=== PATIENT | male | born 1950 | race Caucasian/White ===

== ENCOUNTER 2018-10-21 22:08 | Emergency (ER) | payer MEDICARE ==
[2018-10-21 22:23] VITALS: BP 166/94; PULSE 69; RESP 20; TEMP 97.9
[2018-10-21] MEDS ORDERED: ORPHENADRINE 30 MG/ML 2 ML VIAL IM STA (22:59)
[2018-10-21] MEDS ORDERED: KETOROLAC 60 MG/2 ML VIAL IM STA (22:59)
--- NOTE | 2018-10-21 23:22 | ED ---
Back Pain HPI - General Chief Complaint: Back Pain/Injury Stated Complaint: Hip pain Time Seen by Provider: 10/21/18 22:42 Source: patient, family, RN notes reviewed, old records reviewed Limitations: no limitations - History of Present Illness Initial Comments: PT is a 67 year old male presents to ED with right lower back pain, radiation down the right leg. Patient states that he has had no falls or trauma. Denies saddle anesthesias. PAtient reports no fevers, chills, changes in urination. Denies abdominal pain. - Related Data Home Medications Medication Instructions Recorded Confirmed Ibuprofen [Motrin Ib] 400 mg PO TID PRN 10/21/18 10/21/18 Multivitamins, Thera [Multivitamin 1 tab PO DAILY 10/21/18 10/21/18 (formulary)] Previous Rx's Medication Instructions Recorded Cyclobenzaprine [Flexeril] 10 mg PO TID #20 tab 10/21/18 Dexamethasone 0.75 mg PO DAILY #12 tab 10/21/18 Ibuprofen 600 mg PO TID #20 tablet 10/21/18 Allergies Allergy/AdvReac Type Severity Reaction Status Date / Time No Known Allergies Allergy Verified 10/21/18 22:54 Review of Systems ROS Statement: Those systems with pertinent positive or pertinent negative responses have been documented in the HPI. ROS Other: All systems not noted in ROS Statement are negative. Past Medical History Past Medical History: Asthma History of Any Multi-Drug Resistant Organisms: None Reported Past Surgical History: No Surgical Hx Reported Past Psychological History: No Psychological Hx Reported Smoking Status: Current every day smoker Past Alcohol Use History: Occasional Past Drug Use History: None Reported General Exam - General Exam Comments Initial Comments: This is a 67 year old male, no acute distress. Limitations: no limitations General appearance: alert, in no apparent distress Head exam: Present: atraumatic, normocephalic, normal inspection Eye exam: Present: normal appearance, PERRL, EOMI. Absent: scleral icterus, conjunctival injection, periorbital swelling ENT exam: Present: normal exam, mucous membranes moist Neck exam: Present: normal inspection. Absent: tenderness, meningismus, lymphadenopathy Respiratory exam: Present: normal lung sounds bilaterally. Absent: respiratory distress, wheezes, rales, rhonchi, stridor Cardiovascular Exam: Present: regular rate, normal rhythm, normal heart sounds. Absent: systolic murmur, diastolic murmur, rubs, gallop, clicks GI/Abdominal exam: Present: soft, normal bowel sounds. Absent: distended, tenderness, guarding, rebound, rigid Extremities exam: Present: normal inspection, full ROM, normal capillary refill. Absent: tenderness, pedal edema, joint swelling, calf tenderness Back exam: Present: normal inspection, tenderness (lubar spine,adn right sciatic notch tenderness. ) Neurological exam: Present: alert, oriented X3, CN II-XII intact Psychiatric exam: Present: normal affect, normal mood Skin exam: Present: warm, dry, intact, normal color. Absent: rash Course Vital Signs 10/21/18 22:18 Temperature 97.9 F Pulse Rate 69 Respiratory 20 Rate Blood Pressure 166/94 O2 Sat by Pulse 99 Oximetry Medical Decision Making - Medical Decision Making PAtient is a 67 year old male with right lower back pain, radiating down sciatic nerve. No falls or trauma. Patient has been taking ibuprofen with little relief. At this time he has positive straight leg test and tenderness over sciatic notch. Patient given IM Toradol and norflex. Patient continues to complain of pain. 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 No fracture identified. Discusesd patient can folllwo up with ortho and PCP. Discussed return parameters. Patient agrees to treatment plan and will comply. DC with antiinflammatory medication and muscle releacer. - Radiology Data Radiology results: report reviewed Spondylitic changes noted over the lumbar vertebral spine. There is no fracture noted. Disposition Clinical Impression: Sciatica Disposition: HOME SELF-CARE Condition: Good Instructions: Sciatica (ED), Acute Low Back Pain (ED) Additional Instructions: Patient advised to follow-up with primary care physician. Return to emergency department if any alarming signs or symptoms occur. Prescriptions: Cyclobenzaprine [Flexeril] 10 mg PO TID #20 tab Dexamethasone 0.75 mg PO DAILY #12 tab Ibuprofen 600 mg PO TID #20 tablet Is patient prescribed a controlled substance at d/c from ED?: No Referrals: Camacho Downing MD [Primary Care Provider] - 1-2 days Time of Disposition: 23:55
--- NOTE | 2018-10-21 23:22 | XR ---
EXAMINATION TYPE: XR lumbar spine 2 or 3V DATE OF EXAM: 10/21/2018 COMPARISON: NONE HISTORY: Low back pain TECHNIQUE: 3 views FINDINGS: The vertebra have normal alignment. There is some spurring of the endplates. Abdominal aort a is atheromatous. Sacroiliac joints appear intact. There is no compression fracture. There is sclero sis at the L4-5 disc. Posterior elements appear intact. There is mild lateral subluxation deformity a t the L1 2 level. IMPRESSION: Spondylotic changes. No fracture seen.
[2018-10-22] MEDS ORDERED: ACET/COD 300 MG/30 MG STARTER PACK 6 TAB BTL PO STA (00:02)
[2018-10-22] MEDS ORDERED: CYCLOBENZAPRINE 10MG STARTER 3 TAB BTL PO STA (00:02)
== END 2018-10-22 00:45 | disposition home or self-care (01) ==
LOC: EC 22:08
DX: M54.41 Lumbago with sciatica, right side (principal); M47.896 Other spondylosis, lumbar region; F17.200 Nicotine dependence, unspecified, uncomplicated
CPT/HCPCS: 72100; 99284; 96372 ×2; J2360; J1885

== ENCOUNTER 2022-10-31 03:08 | Inpatient (IN) | payer MEDICARE, OTHER ==
[2022-10-31] MEDS ORDERED: Alteplase PER PHARMACY Stroke 1 EACH MISC MISCELLANE PRN (03:12)
[2022-10-31] MEDS ORDERED: SODIUM CHLORIDE 0.9% 1,000 ML IV STA (03:12)
--- NOTE | 2022-10-31 03:15 | ED ---
Neuro HPI - General Stated Complaint: Possible Stroke Time Seen by Provider: 10/31/22 03:12 Source: RN notes reviewed, old records reviewed Limitations: no limitations - History of Present Illness Is the patient presenting with stroke symptoms?: Yes -: hour(s) (7) Initial Comments: This is a 71-year-old male to the emergency department for evaluation. Patient presents today for evaluation of strokelike symptoms. Patient states she is going to the bathroom tonight when he began to notice significant weakness on his right side and facial drooping. Patient had difficulty speaking did call EMS for evaluation brought to ER under suspicion of stroke. No prior history of CVA. Patient initially went to bed around 7:30 8:00 woke up around 2 AM with these symptoms Location: speech, left face, dysarthria, right arm, right leg Place: home Severity: severe Quality: weak, constant Improves With: none Worsens With: none On Anticoagulants: No Context: sudden onset (occured while sleeping was feeling normal at 1a) Associated Symptoms: denies other symptoms Treatments Prior to Arrival: none - Related Data Home Medications: Home Medications Medication Instructions Recorded Confirmed Ibuprofen [Motrin Ib] 400 mg PO TID PRN 10/21/18 10/21/18 Multivitamins, Thera [Multivitamin 1 tab PO DAILY 10/21/18 10/21/18 (formulary)] Previous Rx's Medication Instructions Recorded Cyclobenzaprine [Flexeril] 10 mg PO TID #20 tab 10/21/18 Ibuprofen 600 mg PO TID #20 tablet 10/21/18 dexAMETHasone 0.75 mg PO DAILY #12 tab 10/21/18 Allergies/Adverse Reactions: Allergies Allergy/AdvReac Type Severity Reaction Status Date / Time No Known Allergies Allergy Verified 10/21/18 22:54 Review of Systems ROS Statement: Those systems with pertinent positive or pertinent negative responses have been documented in the HPI. ROS Other: All systems not noted in ROS Statement are negative. General Exam - General Exam Comments Initial Comments: NIH of 9 Left-sided facial droop, dysarthria, right-sided hemiparesis General appearance: alert, in no apparent distress, anxious Head exam: Present: atraumatic, normocephalic, normal inspection Eye exam: Present: normal appearance, PERRL, EOMI. Absent: scleral icterus, conjunctival injection, periorbital swelling ENT exam: Present: normal exam, mucous membranes moist Neck exam: Present: normal inspection. Absent: tenderness, meningismus, lymphadenopathy Respiratory exam: Present: normal lung sounds bilaterally. Absent: respiratory distress, wheezes, rales, rhonchi, stridor Cardiovascular Exam: Present: regular rate, normal rhythm, normal heart sounds. Absent: systolic murmur, diastolic murmur, rubs, gallop, clicks GI/Abdominal exam: Present: soft, normal bowel sounds. Absent: distended, tend erness, guarding, rebound, rigid Extremities exam: Present: normal inspection, full ROM, normal capillary refill. Absent: tenderness, pedal edema, joint swelling, calf tenderness Back exam: Present: normal inspection Neurological exam: Present: alert, oriented X3, CN II-XII intact Psychiatric exam: Present: normal affect, normal mood Skin exam: Present: warm, dry, intact, normal color. Absent: rash Stroke MDM - Lab Data Result diagrams: 10/31/22 03:13 10/31/22 03:13 Lab Results 10/31/22 10/31/22 10/31/22 Range/Units 03:13 03:13 03:13 WBC 8.8 (3.8-10.6) k/uL RBC 4.90 (4.30-5.90) m/uL Hgb 15.4 (13.0-17.5) gm/dL Hct 45.4 (39.0-53.0) % MCV 92.5 (80.0-100.0) fL MCH 31.4 (25.0-35.0) pg MCHC 33.9 (31.0-37.0) g/dL RDW 13.4 (11.5-15.5) % Plt Count 213 (150-450) k/uL MPV 7.8 Neutrophils % 69 % Lymphocytes % 20 % Monocytes % 5 % Eosinophils % 4 % Basophils % 1 % Neutrophils # 6.0 (1.3-7.7) k/uL Lymphocytes # 1.7 (1.0-4.8) k/uL Monocytes # 0.5 (0-1.0) k/uL Eosinophils # 0.4 (0-0.7) k/uL Basophils # 0.1 (0-0.2) k/uL PT 10.8 (9.0-12.0) sec INR 1.0 (<1.2) APTT 25.2 (22.0-30.0) sec Sodium 142 (137-145) mmol/L Potassium 4.3 (3.5-5.1) mmol/L Chloride 110 H (98-107) mmol/L Carbon Dioxide 23 (22-30) mmol/L Anion Gap 9 mmol/L BUN 19 (9-20) mg/dL Creatinine 0.87 (0.66-1.25) mg/dL Est GFR (CKD-EPI)AfAm >90 (>60 ml/min/1.73 sqM) Est GFR (CKD-EPI)NonAf 88 (>60 ml/min/1.73 sqM) Glucose 100 H (74-99) mg/dL Calcium 8.5 (8.4-10.2) mg/dL Total Bilirubin 0.2 (0.2-1.3) mg/dL AST 19 (17-59) U/L ALT 17 (4-49) U/L Alkaline Phosphatase 64 (38-126) U/L Troponin I (0.000-0.034) ng/mL Total Protein 7.0 (6.3-8.2) g/dL Albumin 4.4 (3.5-5.0) g/dL 10/31/22 Range/Units 03:13 WBC (3.8-10.6) k/uL RBC (4.30-5.90) m/uL Hgb (13.0-17.5) gm/dL Hct (39.0-53.0) % MCV (80.0-100.0) fL MCH (25.0-35.0) pg MCHC (31.0-37.0) g/dL RDW (11.5-15.5) % Plt Count (150-450) k/uL MPV Neutrophils % % Lymphocytes % % Monocytes % % Eosinophils % % Basophils % % Neutrophils # (1.3-7.7) k/uL Lymphocytes # (1.0-4.8) k/uL Monocytes # (0-1.0) k/uL Eosinophils # (0-0.7) k/uL Basophils # (0-0.2) k/uL PT (9.0-12.0) sec INR (<1.2) APTT (22.0-30.0) sec Sodium (137-145) mmol/L Potassium (3.5-5.1) mmol/L Chloride (98-107) mmol/L Carbon Dioxide (22-30) mmol/L Anion Gap mmol/L BUN (9-20) mg/dL Creatinine (0.66-1.25) mg/dL Est GFR (CKD-EPI)AfAm (>60 ml/min/1.73 sqM) Est GFR (CKD-EPI)NonAf (>60 ml/min/1.73 sqM) Glucose (74-99) mg/dL Calcium (8.4-10.2) mg/dL Total Bilirubin (0.2-1.3) mg/dL AST (17-59) U/L ALT (4-49) U/L Alkaline Phosphatase (38-126) U/L Troponin I <0.012 (0.000-0.034) ng/mL Total Protein (6.3-8.2) g/dL Albumin (3.5-5.0) g/dL - NIH Stroke Scale 1a. Level of Consciousness: (0) alert 1b. LOC Questions: (0) answers correctly 1c. LOC Commands: (1) performs 1 task correctly 2. Best Gaze: (0) normal 3. Visual: (0) no visual loss 4. Facial Palsy: (2) partial paralysis 5a. Motor Arm Left: (0) no drift 5b. Motor Arm Right: (3) no gravity effort 6a. Motor Leg Left: (0) no drift 6b. Motor Leg Right: (3) no gravity effort 7. Limb Ataxia: (1) present 1 limb 8. Sensory: (1) mild/moderate sensory loss 9. Best Language: (1) mild/moderate aphasia 10. Dysarthria: (1) mild/moderate dysarthria 11. Extinction/Inattention: (0) no abnormality - Thrombolytic Inclusion/Exclusion Thrombolytic Exclusion Criteria: Symptom Onset > 4.5 Hours (Wake up CVA) - Medical Decision Making 71 male DF for evaluation of CVA no TPA. Onset no due to wake up stroke. Patient is elevated blood pressure low that improved, positive CVA with bilateral carotid stenosis. Patient symptoms are unchanged - Radiology Data Radiology results: report reviewed (CT brain and CTA had neck positive bilateral stenosis), image reviewed - EKG Data -: EKG Interpreted by Me (EKG is sinus rhythm 83 IN 12/01/2010 QRS 114 QTc 428) Past Medical History Past Medical History: Asthma History of Any Multi-Drug Resistant Organisms: None Reported Past Surgical History: No Surgical Hx Reported Past Psychological History: No Psychological Hx Reported Past Alcohol Use History: Occasional Past Drug Use History: None Reported Course Vital Signs 10/31/22 10/31/22 10/31/22 03:13 03:35 03:39 Pulse Rate 64 84 82 Respiratory 18 15 15 Rate Blood Pressure 173/121 165/101 158/90 O2 Sat by Pulse 96 100 Oximetry 10/31/22 10/31/22 03:47 03:57 Pulse Rate 87 89 Respiratory 15 15 Rate Blood Pressure 165/96 169/89 O2 Sat by Pulse 97 97 Oximetry - Reevaluation(s) Reevaluation #1: 10/31/22 04:13 Medical records reviewed Reevaluation #2: 10/31/22 04:13 Patient symptoms unchanged Reevaluation #3: 10/31/22 04:13 Patient informed of results and questions answered - Consultations Consultation #1: Spoke with admitting physicians who agreed to admit this patient Critical Care Time Critical Care Time: Yes Total Critical Care Time: 35 Disposition Clinical Impression: Cerebrovascular accident (CVA) Disposition: ADMITTED IP TO THIS HOSP Condition: Serious Is patient prescribed a controlled substance at d/c from ED?: No Referrals: Camacho Downing MD [Primary Care Provider] - 1-2 days Time of Disposition: 04:05
[2022-10-31] MEDS ORDERED: hydrALAZINE HCL 20 MG/ML 1 ML VIAL IVP STA (03:18)
[2022-10-31] MEDS ORDERED: LABETALOL 5 MG/ML VIAL MDV IVP STA (03:18)
[2022-10-31] MEDS ORDERED: ALTEPLASE 56 MG in EMPTY BAG 1 BAG IV STA (03:20)
[2022-10-31] MEDS ORDERED: ALTEPLASE BOLUS FOR STROKE 6 MG in EMPTY SYRINGE 1 SYR IV STA (03:20)
[2022-10-31 03:25] LABS: Basophils # (A) 0.1 k/uL (0-0.2); Basophils % (A) 1 %; Eosinophils # (A) 0.4 k/uL (0-0.7); Eosinophils % (A) 4 %; HCT 45.4 % (39.0-53.0); HGB 15.4 gm/dL (13.0-17.5); Lymphocytes # (A) 1.7 k/uL (1.0-4.8); Lymphocytes % (A) 20 %; MCH 31.4 pg (25.0-35.0); MCHC 33.9 g/dL (31.0-37.0); MCV 92.5 fL (80.0-100.0); Mean Platelet Volume 7.8; Monocytes # (A) 0.5 k/uL (0-1.0); Monocytes % (A) 5 %; Neutrophils % (A) 69 %; Platelet Count 213 k/uL (150-450); RDW 13.4 % (11.5-15.5); WBC 8.8 k/uL (3.8-10.6)
[2022-10-31 03:35] LABS: Partial Thromboplastin Time 25.2 sec (22.0-30.0); Prothrombin Time 10.8 sec (9.0-12.0)
--- NOTE | 2022-10-31 03:36 | CT ---
EXAMINATION TYPE: CT brain wo con for TPA DATE OF EXAM: 10/31/2022 COMPARISON: None HISTORY: code stroke CT DLP: 1198 mGycm Automated exposure control for dose reduction was used. Images obtained of the brain with no contrast. Ventricles of normal size. There is no mass effect or midline shift. No sign of intracranial hemorrha ge. Calvarium is intact. There is normal aeration of the mastoid sinuses. There is some mucosal thick ening in the maxillary sinuses. IMPRESSION: Negative CT scan of the brain. Mild maxillary sinusitis.
--- NOTE | 2022-10-31 03:43 | CT ---
EXAMINATION TYPE: CT angio head neck DATE OF EXAM: 10/31/2022 COMPARISON: None HISTORY: code stroke CT DLP: mGycm Automated exposure control for dose reduction was used. CONTRAST: Performed with IV Contrast, patient injected with 100 mL of Isovue 370. Images obtained from the aortic arch to the vertex of the brain with the IV contrast. There are Three -D postprocessed images. There is normal branching pattern of the great vessels on the aortic arch. There is arterial flow in the subclavian arteries bilaterally there is arterial flow in the common internal and external caroti d arteries bilaterally. There is some plaque formation and tortuosity involving the proximal left int ernal carotid artery there is significant plaque formation on the posterior wall of the proximal righ t internal carotid artery and 60% diameter stenosis. There is similarly approximately 50% stenosis in the proximal left internal carotid artery. There is arterial flow in both vertebral arteries. There is arterial flow in the vertebral basilar artery system. Basilar artery fills mostly from the right s leoncio. There is no evidence of carotid or vertebral artery aneurysm or dissection. There is arterial flow in the anterior middle and posterior cerebral arteries bilaterally. No evidenc e of intracranial hemodynamic arterial stenosis. No mass effect. No evidence of aneurysm or neovascul arity. There is normal enhancement of the venous sinuses. IMPRESSION: Plaque formation in the proximal internal carotid arteries bilaterally in approximate 60% stenosis on the right side and 50% stenosis on the left side.
[2022-10-31 03:50] LABS: ALT 17 U/L (4-49); AST 19 U/L (17-59); African American GFR (CKD) >90 (>60 ml/min/1.73 sqM); Albumin 4.4 g/dL (3.5-5.0); Alkaline Phosphatase 64 U/L (38-126); Anion Gap 9 mmol/L; Blood Urea Nitrogen 19 mg/dL (9-20); Calcium 8.5 mg/dL (8.4-10.2); Carbon Dioxide 23 mmol/L (22-30); Chloride 110 mmol/L (98-107); Glucose 100 mg/dL (74-99); Non-African American GFR(CKD) 88 (>60 ml/min/1.73 sqM); Potassium 4.3 mmol/L (3.5-5.1); Sodium 142 mmol/L (137-145); Total Bilirubin 0.2 mg/dL (0.2-1.3)
[2022-10-31] MEDS ORDERED: TICAGRELOR 90 MG TAB PO STA (04:02)
[2022-10-31] MEDS ORDERED: MORPHINE SULFATE 4 MG/ML SYRINGE IV PRN (04:02)
[2022-10-31] MEDS ORDERED: NALOXONE 0.4 MG/ML 1 ML VIAL IV PRN (04:02)
[2022-10-31] MEDS ORDERED: ONDANSETRON 4 MG/2 ML VIAL IVP PRN (04:02)
[2022-10-31] MEDS ORDERED: SODIUM CHLORIDE 0.9% 50 ML MINI-BAG IV ONE (04:22)
[2022-10-31] MEDS: SODIUM CHLORIDE 0.9% 1,000 ML IV SCH ×3 (04:54→18:27)
--- NOTE | 2022-10-31 08:18 | P.HPIM ---
History of Present Illness This is a pleasant 71 years old male with past medical history of asthma presents with right-sided weakness Patient presents because of right-sided weakness, he was trying to reach out to his phone earlier morning 3 to 4:00 AM when he noticed that he could not move his right arm and leg also he felt numbness in his right side of the face so he came to emergency room, currently still right-sided weak but he can move his leg slightly better, he can bend his knee and lifted off the bed easily. However her right arm still has limitation in movement. Also he has mild deviation towards the left side. He has some headache but he denies any dizziness or blurred vision, double vision or slurred speech. If his little short of breath and coughing. No chest pain. No urinary complaints, no dysuria urgency, no vomiting or diarrhea or abdominal pain. No fever. He smokes about 1 pack per day but he desires to quit today and he agrees to the nicotine patch. No alcohol or illicit drugs. Vitals are stable and patient is afebrile Has unremarkable CBC, INR, BMP, liver enzymes, troponin. EKG showing normal sinus rhythm at [address]-T changes CT of the brain: No acute process CTA of the head and neck: 60% stenosis of the right ICA and 50% stenosis of the left ICA In the emergency room patient was started on brillinta Review of Systems Review of systems CONSTITUTIONAL: No fever, no malaise, no fatigue. HEENT: No recent visual problems or hearing problems. Denied any sore throat. CARDIOVASCULAR: No orthopnea, PND, no palpitations, no syncope. PULMONARY: No shortness of breath, no cough, no hemoptysis. GASTROINTESTINAL: No diarrhea, no nausea, no vomiting, no abdominal pain. Normoactive bowel sounds. NEUROLOGICAL: No headaches, no weakness, no numbness. HEMATOLOGICAL: Denies any bleeding or petechiae. GENITOURINARY: Denies any burning micturition, frequency, or urgency. MUSCULOSKELETAL/RHEUMATOLOGICAL: Denies any joint pain, swelling, or any muscle pain. ENDOCRINE: Denies any polyuria or polydipsia. Past Medical History Past Medical History: Asthma History of Any Multi-Drug Resistant Organisms: None Reported Past Surgical History: No Surgical Hx Reported Past Psychological History: No Psychological Hx Reported Past Alcohol Use History: Occasional Past Drug Use History: None Reported Medications and Allergies Home Medications Medication Instructions Recorded Confirmed Type No Known Home Medications 10/31/22 10/31/22 History Allergies Allergy/AdvReac Type Severity Reaction Status Date / Time No Known Allergies Allergy Verified 10/31/22 07:26 Physical Exam Vitals: Vital Signs Temp Pulse Resp BP Pulse Ox 10/31/22 05:51 82 15 167/96 99 10/31/22 05:22 97.4 F L 10/31/22 05:06 80 15 153/87 97 10/31/22 04:55 80 15 147/95 97 10/31/22 03:57 89 15 169/89 97 10/31/22 03:47 87 15 165/96 97 10/31/22 03:39 82 15 158/90 100 10/31/22 03:35 84 15 165/101 10/31/22 03:13 64 18 173/121 96 Intake and Output 10/30/22 10/30/22 10/31/22 14:59 22:59 06:59 Other: Weight 68.855 kg GENERAL: The patient is alert and oriented x3, not in any acute distress. Well developed, well nourished. HEENT: Pupils are round and equally reacting to light. EOMI. No scleral icterus. No conjunctival pallor. Normocephalic, atraumatic. No pharyngeal erythema. No thyromegaly. CARDIOVASCULAR: S1 and S2 present. No murmurs, rubs, or gallops. -PULMONARY: Chest is clear to auscultation,crackles. Mild scattered wheezing ABDOMEN: Soft, nontender, nondistended, normoactive bowel sounds. No palpable organomegaly. MUSCULOSKELETAL: No joint swelling or deformity. EXTREMITIES: No cyanosis, clubbing, or pedal edema. -NEUROLOGICAL: Deviation of the most dorsal left side, right arm weakness and also agrees right leg weakness. Left side is 5/5 strength. Loss of sensation in the right side but not on the left side. SKIN: No rashes. no petechiae. Results CBC & Chem 7: 10/31/22 03:13 10/31/22 03:13 Labs: Abnormal Lab Results - Last 24 Hours (Table) 10/31/22 Range/Units 03:13 Chloride 110 H (98-107) mmol/L Glucose 100 H (74-99) mg/dL Assessment and Plan Assessment: Acute stroke with right hemiparesis Bilateral carotid artery stenosis, right side 60%, left side 50% asthma, with mild exacerbation Nicotine dependence Plan: Continue with brillinta Neuro check Neurology consult Speech therapy evaluation Continue with bronchodilator and we budesonide inhaler Nicotine patch We'll check chest x-ray in view of his breathing problem Labs and medication were reviewed.. Continue same treatment. Continue with symptomatic treatment. Resume home medication. Monitor labs and vitals. DVT and GI prophylaxis. Further recommendations as per clinical course of the patient DVT prophylaxis: Subcutaneous heparin GI Prophylaxis: Pepcid PT/OT: Pending Prognosis is guarded
[2022-10-31] MEDS: IPRATROPIUM-ALBUTEROL 3 ML NEB INHALATION STA ×2 (08:20→08:22)
[2022-10-31] MEDS: FAMOTIDINE 20 MG/2 ML VIAL IV SCH ×2 (08:43→20:05)
[2022-10-31] MEDS: NICOTINE 21MG/24HR PATCH TRANSDERM SCH (08:44)
[2022-10-31] MEDS: HEPARIN SODIUM,PORCINE/PF 5,000 UNIT/0.5 ML SYRINGE SQ SCH ×2 (08:44→20:06)
--- NOTE | 2022-10-31 09:16 | XR ---
EXAMINATION TYPE: XR chest 2V DATE OF EXAM: 10/31/2022 COMPARISON: None INDICATION: Short of breath, asthma TECHNIQUE: Frontal and lateral views of the chest are obtained. FINDINGS: The heart size is normal. The pulmonary vasculature is normal. The lungs are clear. Upper inflation flattening of the diaphragms is present compatible with COPD. M inimal posterior pleural fluid is not excluded. IMPRESSION: 1. No acute pulmonary process. Minimal posterior pleural fluid is not excluded. 2. COPD
--- NOTE | 2022-10-31 09:48 | US ---
EXAMINATION TYPE: US carotid duplex BILAT DATE OF EXAM: 10/31/2022 COMPARISON: Same day CTA CLINICAL HISTORY: right sided weakness, CVA/TIA. Pt states transient right side weakness TECHNIQUE: Carotid duplex ultrasound examination. Indirect Doppler criteria was utilized. FINDINGS: EXAM MEASUREMENTS: RIGHT: Peak Systolic Velocity (PSV) cm/sec ----- Right CCA: 64.8 ----- Right ICA: 468 ----- Right ECA: 184 ICA/CCA ratio: 7.2 RIGHT: End Diastole cm/sec ----- Right CCA: 16.1 ----- Right ICA: 141 ----- Right ECA: 27.3 LEFT: Peak Systolic Velocity (PSV) cm/sec ----- Left CCA: 71.5 ----- Left ICA: 251 ----- Left ECA: 124 ICA/CCA ratio: 3.5 LEFT: End Diastole cm/sec ----- Left CCA: 13.6 ----- Left ICA: 73.8 ----- Left ECA: 24.1 VERTEBRALS (direction of flow): Right Vertebral: Antegrade Left Vertebral: Antegrade Rhythm: Normal ORIGINATION SPECIALIST NOTES: Heterogeneous and soft plaque bilaterally with significant stenosis and abnormal r atios bilaterally, more on right side IMPRESSION: 1. Atheromatous plaquing of bilateral carotid bifurcations with flow-limiting stenosis. This is signi ficant on the right, greater than 70%. This is also significant on the left, greater than 70%, but li faby less than on the right. Criteria for Assigning % of Stenosis / Diameter reduction (Estimation based on the indirect measurements of the internal carotid artery velocities (ICA PSV). 1. Normal (no stenosis)=ICA PSV < 125 cm/s: ratio < 2.0: ICA EDV<40 cm/s. 2. Less than 50% stenosis=ICA PSV < 125 cm/s: ratio < 2.0: ICA EDV<40 cm/s. 3. 50 to 69% stenosis=ICA PSV of 125 to 230 cm/s: ration 2.0 ? 4.0: ICA EDV 40-100 cm/s. 4. Greater than 70% stenosis to near occlusion= ICA PSV > 230 cm/s: ratio > 4.0: ICA EDV > 100 cm/s. 5. Near occlusion= ICA PSV velocities may be low or undetectable: variable ratio and ICA EDV. 6. Total occlusion=unable to detect flow.
--- NOTE | 2022-10-31 12:28 | P.GSCN ---
History of Present Illness Consult date: 10/31/22 Reason for Consult: Carotid stenosis Requesting physician: Cm Quispe History of present illness: KASSIE is a pleasant 71-year-old male who presented to the emergency department approximately 3 AM with complaints of right-sided weakness facial droop and difficulty with his speech. Patient states he woke up around 1-2:00 in the morning and had difficulty with using his phone and pushing numbers with his right hand. He then noticed that he was having some right-sided weakness and something was not right. He got up and he was able to walk he saw his son and he states that he then started having some difficulty with speaking and slurred speech. He denies any visual changes or left-sided weakness. Symptoms lasted until he came to the emergency department. He denies any previous history of CVA/TIA. He has a past medical history of asthma, and he is a current pack per day smoker. Patient is right-hand dominant. Symptoms have resolved. Denies any previous known history of carotid artery disease, no diabetes, and no reported coronary artery disease. Patient had a CT angiogram of the head and n angela that did show bilateral carotid artery stenosis. Vascular surgery was consulted for the above. Currently patient denies any chest pain, shortness of breath, abdominal pain, nausea vomiting, fevers or chills. He denies any focal deficits. States he is able to move his right upper extremity and lower extremity, speech seems fluent, and no visual disturbances. Patient was started on Brilinta in the emergency room. Patient was not given TPA has a stated his last known normal was at 7 or 8 PM which was greater than [address] impression states negative computed tomography scan of brain. Mild maxillary sinusitis CT angiogram head and neck impression states plaque formation in the proximal internal carotid arteries bilaterally and approximate 60% stenosis on the right and 50% stenosis on the left side. Review of Systems A 14 point review systems was completed all pertinent positives and negatives as stated in the HPI. Past Medical History Past Medical History: Asthma History of Any Multi-Drug Resistant Organisms: None Reported Past Surgical History: No Surgical Hx Reported Past Psychological History: No Psychological Hx Reported Past Alcohol Use History: Occasional Past Drug Use History: None Reported - Past Family History Mother Family Medical History: Myocardial Infarction ([place]) Medications and Allergies Home Medications Medication Instructions Recorded Confirmed Type No Known Home Medications 10/31/22 10/31/22 History Allergies Allergy/AdvReac Type Severity Reaction Status Date / Time No Known Allergies Allergy Verified 10/31/22 07:26 Surgical - Exam Vital Signs Pulse Resp BP Pulse Ox 64 18 173/121 96 10/31/22 03:13 10/31/22 03:13 10/31/22 03:13 10/31/22 03:13 General appearance: The patient is alert, oriented, appears in no acute distress. HET: Head is normocephalic and atraumatic. Pupils are equal and reactive. Neck: Supple without lymphadenopathy. Trachea midline. No audible carotid bruit. Heart: Regular. Lungs: Equal expansion, normal respiratory effort. Abdomen: Soft, nontender, nondistended. Extremities: Normal skin color and turgor. No cyanosis, rash, ulceration, clubbing, or edema. Radial and pedal pulses are 2/4 bilaterally. Neurological: Patient is alert and oriented 3. Patient has facial symmetry, tongue protrudes midline. Speech is clear and fluent, patient is able to follow directions and answer questions appropriately. Patient with mild right upper and lower extremity weakness 4/5. Results - Labs 10/31/22 03:13 10/31/22 03:13 Abnormal Lab Results - Last 24 Hours (Table) 10/31/22 Range/Units 03:13 Chloride 110 H (98-107) mmol/L Glucose 100 H (74-99) mg/dL Diabetes panel 10/31/22 Range/Units 03:13 Sodium 142 (137-145) mmol/L Potassium 4.3 (3.5-5.1) mmol/L Chloride 110 H (98-107) mmol/L Carbon Dioxide 23 (22-30) mmol/L BUN 19 (9-20) mg/dL Creatinine 0.87 (0.66-1.25) mg/dL Glucose 100 H (74-99) mg/dL Calcium 8.5 (8.4-10.2) mg/dL AST 19 (17-59) U/L ALT 17 (4-49) U/L Alkaline Phosphatase 64 (38-126) U/L Total Protein 7.0 (6.3-8.2) g/dL Albumin 4.4 (3.5-5.0) g/dL Calcium panel 10/31/22 Range/Units 03:13 Calcium 8.5 (8.4-10.2) mg/dL Albumin 4.4 (3.5-5.0) g/dL Pituitary panel 10/31/22 Range/Units 03:13 Sodium 142 (137-145) mmol/L Potassium 4.3 (3.5-5.1) mmol/L Chloride 110 H (98-107) mmol/L Carbon Dioxide 23 (22-30) mmol/L BUN 19 (9-20) mg/dL Creatinine 0.87 (0.66-1.25) mg/dL Glucose 100 H (74-99) mg/dL Calcium 8.5 (8.4-10.2) mg/dL Adrenal panel 10/31/22 Range/Units 03:13 Sodium 142 (137-145) mmol/L Potassium 4.3 (3.5-5.1) mmol/L Chloride 110 H (98-107) mmol/L Carbon Dioxide 23 (22-30) mmol/L BUN 19 (9-20) mg/dL Creatinine 0.87 (0.66-1.25) mg/dL Glucose 100 H (74-99) mg/dL Calcium 8.5 (8.4-10.2) mg/dL Total Bilirubin 0.2 (0.2-1.3) mg/dL AST 19 (17-59) U/L ALT 17 (4-49) U/L Alkaline Phosphatase 64 (38-126) U/L Total Protein 7.0 (6.3-8.2) g/dL Albumin 4.4 (3.5-5.0) g/dL Assessment and Plan Assessment: 1. Bilateral internal carotid artery stenosis 60% right ICA stenosis, 50% left ICA stenosis per CTA 2. Discordant findings on carotid duplex with right ICA stenosis closer to greater than 70% and left ICA stenosis of 60-70% 2. Right extremity weakness, slurred speech now resolved, likely TIA 3. Current tobacco abuse, 1 pack per day greater than 30 years Plan: 1. Await recommendations from neurology 2. Patient started initially on atorvastatin 40 mg at bedtime 3. Continue Brillinta 4. Carotid duplex ordered 5. Recommend smoking cessation 6. Further recommendations forthcoming per vascular surgeon. Patient will need bilateral carotid endarterectomy. Plan for left ICA first due to symptomatic ICA stenosis. Timing based on recommendations from neurology. Thank you for this consultation, we will continue to follow. The impression and plan of care has been dictated as directed. Dr. Rodgers I performed a history and examination of this patient, discussed the same with the dictator. I agree with the dictator's note ,documented as a scribe. Any additional findings or plans will be noted. Reviewed images. Right ICA worse than left but left is symptomatic. After reviewing anatomy the left ICA would be better suited for open endarterectomy. Await neurology recs.
[2022-10-31] MEDS ORDERED: ASPIRIN 325 MG TAB PO SCH (16:30)
--- NOTE | 2022-10-31 18:18 | P.CNNES ---
History of Present Illness Consult date: 10/31/22 Requesting physician: Cm Quispe Reason for Consult: CVA History of Present Illness: Patient is a 71-year-old right-handed male, who is otherwise healthy, came to the hospital at 3:08 AM for strokelike symptoms. Patient states that woke up at around 4 AM, tried to turn on the telephone, and he could not do it with his right hand. (Patient probably not remembering the time accurately, as he arrived to the hospital earlier at 3:08 AM.) He noticed weakness of the right hand. He states that he sat there, and felt was getting weaker and his speech was slurred, therefore his son called the ambulance and he was brought to the hospital. Patient says that he went to bed the night prior at 8:30 to 9 PM in [facility]. Patient's vital signs arrival blood pressure was 173/121, which improved to 1 65/101. Pulse rate 64 respiration 18. Patient's CBC, CMP, PT/PTT are normal. Patient's NIH stroke scale documented in the ED was 9. Patient was not a candidate for TPA, as he woke up with stroke symptoms in the last known well was > 4.5 hours. He has smoked 2 packs per day for 20-25 years, cutback to 1 pack per day in the last 6 months. He denies any previous history of stroke or TIA. Denies hypertension or diabetes. He does use inhalers. He does not take any antiplatelet medication at home. Review of Systems Constitutional: Denies chills, Denies fever Eyes: denies blurred vision, denies pain Ears: deny: decreased hearing Ears, nose, mouth and throat: Denies headache, Denies sore throat Cardiovascular: Denies chest pain, Denies shortness of breath Respiratory: Denies cough Gastrointestinal: Denies abdominal pain, Denies diarrhea, Denies nausea, Denies vomiting Musculoskeletal: Denies myalgias Integumentary: Denies pruritus, Denies rash Neurological: Reports as per HPI Psychiatric: Denies anxiety, Denies depression Endocrine: Denies fatigue, Denies weight change Past Medical History Past Medical History: Asthma History of Any Multi-Drug Resistant Organisms: None Reported Past Surgical History: No Surgical Hx Reported Past Psychological History: No Psychological Hx Reported Past Alcohol Use History: Occasional Past Drug Use History: None Reported - Past Family History Mother Family Medical History: Myocardial Infarction ([place]) Medications and Allergies Home Medications Medication Instructions Recorded Confirmed Type No Known Home Medications 10/31/22 10/31/22 History Allergies Allergy/AdvReac Type Severity Reaction Status Date / Time No Known Allergies Allergy Verified 10/31/22 07:26 Physical Examination - Vital Signs Vital Signs: Vital Signs Temp Pulse Pulse Resp BP BP Pulse Ox 10/31/22 11:05 92 17 169/113 98 10/31/22 08:45 98 F 71 18 159/102 98 10/31/22 06:40 80 15 159/88 98 10/31/22 05:51 82 15 167/96 99 10/31/22 05:22 97.4 F L 10/31/22 05:06 80 15 153/87 97 10/31/22 04:55 80 15 147/95 97 10/31/22 03:57 89 15 169/89 97 10/31/22 03:47 87 15 165/96 97 10/31/22 03:39 82 15 158/90 100 10/31/22 03:35 84 15 165/101 10/31/22 03:13 64 18 173/121 96 Intake and Output 10/31/22 10/31/22 10/31/22 06:59 14:59 22:59 Output Total 400 300 Balance -400 -300 Output: Urine 400 300 Other: Voiding Method Urinal Weight 68.855 kg 68.855 kg Patient is an elderly male, appears younger than his stated age. Patient is alert awake oriented to time place and person. Speech is mildly dysarthric and language functions are normal. Patient can name and repeat very well. No aphasia. Attention, concentration and fund of knowledge is adequate. On cranial nerve examination, pupils are equal, round and reacting to light, visual painter are full on confrontation, with no neglect on double simultaneous stimulation. Extraocular muscles are intact with no nystagmus. Patient has right facial weakness, central type, moderate. His tongue protrudes to the midline. Palatal elevation and sensation normal, hearing and shoulder shrug normal, facial sensation normal. On muscle strength testing, there is right pronator drift. Strength is (right/left) deltoid 2/5, biceps 4+/5, triceps 5/5, operating cost clerk 4+/5, hip flexion 4-/5, ankle dorsiflexion 5-/5. Deep tendon reflexes are symmetric 2+ all over and plantar is up on the right, down on the left. Sensory to touch is equal with no neglect on double simultaneous stimulation. Cerebellar function showed significant ataxia for [id number] testing only on the right side. No ataxia for [id number] testing on either side. Tone and bulk of muscles normal. Gait deferred.. On general examination, there is no carotid bruit or murmur, S1-S2 audible. Chest is clear on consultation. Abdomen is soft nontender. No organomegaly, bowel sounds present. Peripheral pulses are present. No edema. Results - Laboratory Findings CBC and BMP: 10/31/22 03:13 10/31/22 03:13 Abnormal Lab Findings: Abnormal Labs 10/31/22 03:13 Chloride 110 H Glucose 100 H Assessment and Plan Assessment: * Acute ischemic stroke with right hemiparesis. Mechanism of stroke likely due to lacunar stroke from small vessel disease versus distal embolic from carotid disease. * Hypertension * Tobacco use Plan: * MRI of the brain without contrast, evaluate for acute CVA * 2-D echo with bubble study to rule out PFO * CTA head and neck showed: Plaque formation proximal ICA bilaterally, approximate 60% stenosis right and 50% on the left * Carotid Doppler, revealed greater than 70% stenosis bilateral ICA. * Fasting a.m. lipid panel * Hemoglobin A1c * Permissive hypertension for next 24-48 hours * Close neuro checks as per protocol. * Telemetry monitoring rule out any arrhythmia * Patient started on aspirin and Brilinta 90 mg twice a day. Patient was not on any antiplatelet medication at home. * Recommend complete tobacco cessation. * DVT prophylaxis: Heparin 5000 units subcu every 8 hours * Neurology will continue ot follow. Thank you for the consult.
[2022-10-31] MEDS: TICAGRELOR 90 MG TAB PO SCH (20:06)
[2022-10-31] MEDS: ATORVASTATIN 40 MG TAB PO SCH (20:06)
[2022-10-31] MEDS: BUDESONIDE 0.5 MG/2 ML NEBU INHALATION SCH (20:08)
[2022-10-31 20:25] LABS: Appearance,Urine Clear (Clear); Bilirubin,Urine Negative (Negative); Blood,Urine Negative (Negative); Color,Urine Light Yellow; Glucose,Urine (UA) Negative (Negative); Ketones,Urine Trace (Negative); Leukocyte Esterase,Urine Negative (Negative); Nitrite,Urine Negative (Negative); Protein,Urine Negative (Negative); Specific Gravity,Urine 1.013 (1.001-1.035); Urobilinogen,Urine <2.0 mg/dL (<2.0)
[2022-11-01] MEDS: SODIUM CHLORIDE 0.9% 1,000 ML IV SCH ×3 (05:30→17:10)
[2022-11-01] MEDS: BUDESONIDE 0.5 MG/2 ML NEBU INHALATION SCH ×2 (08:39→20:04)
[2022-11-01] MEDS: IPRATROPIUM-ALBUTEROL 3 ML NEB INHALATION PRN ×3 (08:39→20:04)
[2022-11-01] MEDS: HEPARIN SODIUM,PORCINE/PF 5,000 UNIT/0.5 ML SYRINGE SQ SCH ×2 (09:24→21:09)
[2022-11-01] MEDS: FAMOTIDINE 20 MG/2 ML VIAL IV SCH (09:25)
[2022-11-01] MEDS: NICOTINE 21MG/24HR PATCH TRANSDERM SCH (09:25)
[2022-11-01] MEDS: TICAGRELOR 90 MG TAB PO SCH ×2 (09:25→21:10)
[2022-11-01] MEDS: ASPIRIN 81 MG PO SCH (09:25)
[2022-11-01] MEDS ORDERED: hydrALAZINE HCL 20 MG/ML 1 ML VIAL IVP STA (09:42)
[2022-11-01 10:53] LABS: Basophils # (A) 0.1 k/uL (0-0.2); Basophils % (A) 1 %; Eosinophils # (A) 0.1 k/uL (0-0.7); Eosinophils % (A) 1 %; HCT 43.2 % (39.0-53.0); HGB 14.4 gm/dL (13.0-17.5); Lymphocytes # (A) 0.9 k/uL (1.0-4.8); Lymphocytes % (A) 12 %; MCH 31.1 pg (25.0-35.0); MCHC 33.3 g/dL (31.0-37.0); MCV 93.3 fL (80.0-100.0); Mean Platelet Volume 7.9; Monocytes # (A) 0.4 k/uL (0-1.0); Monocytes % (A) 5 %; Neutrophils # (A) 5.7 k/uL (1.3-7.7); Neutrophils % (A) 79 %; Platelet Count 204 k/uL (150-450); RBC 4.63 m/uL (4.30-5.90); RDW 13.5 % (11.5-15.5); WBC 7.1 k/uL (3.8-10.6)
[2022-11-01 11:00] LABS: ALT 15 U/L (4-49); AST 19 U/L (17-59); African American GFR (CKD) >90 (>60 ml/min/1.73 sqM); Albumin 3.7 g/dL (3.5-5.0); Alkaline Phosphatase 58 U/L (38-126); Anion Gap 5 mmol/L; Blood Urea Nitrogen 8 mg/dL (9-20); Calcium 8.1 mg/dL (8.4-10.2); Carbon Dioxide 22 mmol/L (22-30); Chloride 114 mmol/L (98-107); Glucose 88 mg/dL (74-99); Non-African American GFR(CKD) >90 (>60 ml/min/1.73 sqM); Potassium 4.1 mmol/L (3.5-5.1); Sodium 141 mmol/L (137-145); Total Bilirubin 0.4 mg/dL (0.2-1.3); Total Protein 6.2 g/dL (6.3-8.2)
--- NOTE | 2022-11-01 11:47 | MR ---
EXAMINATION TYPE: MR brain wo con DATE OF EXAM: 11/01/2022 11:35 AM COMPARISON: CT brain 10/31/2022. CLINICAL INDICATION:Male, 71 years old with history of Acute CVA; TECHNIQUE: Multi planar, multi sequence imaging was performed through the brain including: T1, T2, In version recovery, Diffusion weighted imaging, and gradient echo imaging. No gadolinium was given. FINDINGS: Restricted diffusion seen within the left posterior limb of the internal capsule extending up to the tadeo radiata. The navarro-white junctions, ventricular system, and cisterns appear unremarkable. Scattered foci of hi gh T2 signal intensity are seen within the periventricular white matter. Midline structures show no a bnormality. The susceptibility weighted images do not reveal any evidence for micro-hemorrhage. The bone marrow signal is within normal limits. Paranasal sinuses and mastoid air cells: Mild scattered paranasal sinus disease. Visualized orbits: Orbital contents are intact. IMPRESSION: 1. Acute/subacute CVA of the left posterior limb of the internal capsule with extension superiorly in to the left tadeo radiata. 2. Nonspecific white matter changes, likely secondary to small vessel ischemic disease.
--- NOTE | 2022-11-01 13:35 | P.PN ---
Subjective Progress Note Date: 11/01/22 This is a pleasant 71 years old male with past medical history of asthma presents with right-sided weakness Patient presents because of right-sided weakness, he was trying to reach out to his phone earlier morning 3 to 4:00 AM when he noticed that he could not move his right arm and leg also he felt numbness in his right side of the face so he came to emergency room, currently still right-sided weak but he can move his leg slightly better, he can bend his knee and lifted off the bed easily. However h er right arm still has limitation in movement. Also he has mild deviation towards the left side. He has some headache but he denies any dizziness or blurred vision, double vision or slurred speech. If his little short of breath and coughing. No chest pain. No urinary complaints, no dysuria urgency, no vomiting or diarrhea or abdominal pain. No fever. He smokes about 1 pack per day but he desires to quit today and he agrees to the nicotine patch. No alcohol or illicit drugs. Vitals are stable and patient is afebrile Has unremarkable CBC, INR, BMP, liver enzymes, troponin. EKG showing normal sinus rhythm at [address]-T changes CT of the brain: No acute process CTA of the head and neck: 60% stenosis of the right ICA and 50% stenosis of the left ICA 11/01. Patient seen and examined. Continues to have right-sided weakness. Right-sided facial droop noticeable. Speech is slightly slurred REVIEW OF SYSTEMS: CONSTITUTIONAL: No fever, no malaise,. CARDIOVASCULAR: No chest pain, no palpitations, no syncope. PULMONARY: No shortness of breath, no cough, GASTROINTESTINAL: No diarrhea, no nausea, no vomiting, no abdominal pain. PHYSICAL EXAMINATION: GENERAL: The patient is alert and oriented x3, not in any acute distress. Well developed, well nourished. HEENT: Pupils are round and equally reacting to light. EOMI. No scleral icterus. No conjunctival pallor. Normocephalic, atraumatic. No pharyngeal erythema. No thyromegaly. CARDIOVASCULAR: S1 and S2 present. No murmurs, rubs, or gallops. PULMONARY: Chest is clear to auscultation, no wheezing or crackles. ABDOMEN: Soft, nontender, nondistended, normoactive bowel sounds. No palpable organomegaly. MUSCULOSKELETAL: No joint swelling or deformity. EXTREMITIES: No cyanosis, clubbing, or pedal edema. NEUROLOGICAL: Muscle strength is 0/5 in right upper and lower extremity. Right facial droop seen. SKIN: No rashes. Assessment and plan Acute CVA with right hemiparesis Bilateral carotid artery stenosis, right side 60%, left side 50% asthma, with mild exacerbation Nicotine dependence Plan: Monitor vital signs Continue telemetry monitoring Continue neuro checks CTA head and neck showed: Plaque formation proximal ICA bilaterally, approximate 60% stenosis right and 50% on the left Carotid Doppler, revealed greater than 70% stenosis bilateral ICA. MRI brain ordered Follow-up on 2-D echo Continue with aspirin and brillinta Continue with bronchodilator and we budesonide inhaler Follow-up on neurology recommendations follow-up with vascular surgery recommendations regarding endarterectomy DVT prophylaxis: Objective - Vital Signs Vital signs: Vital Signs Temp 98.3 F 11/01/22 08:00 Pulse 86 11/01/22 08:51 Resp 16 11/01/22 08:00 BP 186/94 11/01/22 08:00 Pulse Ox 98 11/01/22 08:00 FiO2 Intake & Output 10/31/22 11/01/22 11/01/22 18:59 06:59 18:59 Output Total 700 950 400 Balance -700 -950 -400 Weight 68.855 kg Output: Urine 700 950 400 Other: Voiding Method Urinal Urinal Urinal # Bowel Movements 1 - Labs CBC & Chem 7: 11/01/22 09:47 11/01/22 09:47 Labs: Abnormal Lab Results - Last 24 Hours (Table) 10/31/22 11/01/22 11/01/22 Range/Units 03:12 09:47 09:47 Lymphocytes # 0.9 L (1.0-4.8) k/uL Chloride 114 H (98-107) mmol/L BUN 8 L (9-20) mg/dL Calcium 8.1 L (8.4-10.2) mg/dL Total Protein 6.2 L (6.3-8.2) g/dL Urine Ketones Trace H (Negative)
[2022-11-01] MEDS ORDERED: ALPRAZolam 0.25 MG TAB PO STA (14:16)
--- NOTE | 2022-11-01 14:26 | P.PN ---
Subjective Progress Note Date: 11/01/22 Patient seen and examined. Still with speech difficulty although feeling slightly better. No acute distress. No complaints. Objective - Vital Signs Vital signs: Vital Signs Temp 98.3 F 11/01/22 08:00 Pulse 86 11/01/22 08:51 Resp 16 11/01/22 08:00 BP 186/94 11/01/22 08:00 Pulse Ox 98 11/01/22 08:00 FiO2 Intake & Output 10/31/22 11/01/22 11/01/22 18:59 06:59 18:59 Output Total 700 950 400 Balance -700 -950 -400 Weight 68.855 kg Output: Urine 700 950 400 Other: Voiding Method Urinal Urinal Urinal # Bowel Movements 1 - Exam Gen. is a pleasant and cooperative male in no acute distress. Some speech difficulty. Weakness of the right side. No acute distress. Heart is regular. Lungs are clear. Abdomen is soft. - Labs CBC & Chem 7: 11/01/22 09:47 11/01/22 09:47 Labs: Abnormal Lab Results - Last 24 Hours (Table) 10/31/22 11/01/22 11/01/22 Range/Units 03:12 09:47 09:47 Lymphocytes # 0.9 L (1.0-4.8) k/uL Chloride 114 H (98-107) mmol/L BUN 8 L (9-20) mg/dL Calcium 8.1 L (8.4-10.2) mg/dL Total Protein 6.2 L (6.3-8.2) g/dL Urine Ketones Trace H (Negative) Assessment and Plan Plan: #1 bilateral internal carotid artery stenosis, greater than 70% bilaterally Tobacco abuse Right sided weakness Discussion had with neurology regarding timing,given the area of ischemia, would await stabilization,. Continue conservative measures with medication this point. Patient will need open carotid endarterectomy on the left due to symptomatic nature, we'll plan short-term outpatient follow-up for intervention. Seems like patient may be going for inpatient rehab which will help with his recovery.
[2022-11-01 18:34] LABS: Chol/HDL Ratio 3.57 Ratio; LDL Cholesterol,Calculated 95.6 mg/dL (0.0-131.0)
[2022-11-01] MEDS: ATORVASTATIN 40 MG TAB PO SCH (21:09)
[2022-11-01] MEDS: FAMOTIDINE 20 MG TAB PO SCH (21:10)
[2022-11-02] MEDS: SODIUM CHLORIDE 0.9% 1,000 ML IV SCH ×3 (04:20→17:26)
[2022-11-02] MEDS: BUDESONIDE 0.5 MG/2 ML NEBU INHALATION SCH ×2 (07:40→19:19)
[2022-11-02] MEDS: IPRATROPIUM-ALBUTEROL 3 ML NEB INHALATION PRN ×3 (07:40→19:19)
[2022-11-02] MEDS: FAMOTIDINE 20 MG TAB PO SCH ×2 (08:12→20:55)
[2022-11-02] MEDS: HEPARIN SODIUM,PORCINE/PF 5,000 UNIT/0.5 ML SYRINGE SQ SCH ×2 (08:12→20:55)
[2022-11-02] MEDS: TICAGRELOR 90 MG TAB PO SCH ×2 (08:12→20:55)
[2022-11-02] MEDS: NICOTINE 21MG/24HR PATCH TRANSDERM SCH (08:13)
[2022-11-02] MEDS: ASPIRIN 81 MG PO SCH (08:13)
[2022-11-02 09:45] LABS: HCT 41.9 % (39.0-53.0); HGB 14.4 gm/dL (13.0-17.5); MCH 31.3 pg (25.0-35.0); MCHC 34.4 g/dL (31.0-37.0); MCV 90.9 fL (80.0-100.0); Mean Platelet Volume 7.8; Platelet Count 203 k/uL (150-450); RBC 4.61 m/uL (4.30-5.90); RDW 13.7 % (11.5-15.5); WBC 8.7 k/uL (3.8-10.6)
[2022-11-02 10:00] LABS: ALT 16 U/L (4-49); AST 20 U/L (17-59); African American GFR (CKD) >90 (>60 ml/min/1.73 sqM); Alkaline Phosphatase 57 U/L (38-126); Anion Gap 7 mmol/L; Blood Urea Nitrogen 9 mg/dL (9-20); Calcium 8.5 mg/dL (8.4-10.2); Carbon Dioxide 22 mmol/L (22-30); Chloride 112 mmol/L (98-107); Glucose 100 mg/dL (74-99); Non-African American GFR(CKD) >90 (>60 ml/min/1.73 sqM); Sodium 141 mmol/L (137-145); Total Bilirubin 0.5 mg/dL (0.2-1.3); Total Protein 6.6 g/dL (6.3-8.2)
[2022-11-02] MEDS ORDERED: hydrALAZINE HCL 20 MG/ML 1 ML VIAL IVP PRN (12:56)
--- NOTE | 2022-11-02 13:04 | P.PN ---
Subjective Progress Note Date: 11/02/22 This is a pleasant 71 years old male with past medical history of asthma presents with right-sided weakness Patient presents because of right-sided weakness, he was trying to reach out to his phone earlier morning 3 to 4:00 AM when he noticed that he could not move his right arm and leg also he felt numbness in his right side of the face so he came to emergency room, currently still right-sided weak but he can move his leg slightly better, he can bend his knee and lifted off the bed easily. However h er right arm still has limitation in movement. Also he has mild deviation towards the left side. He has some headache but he denies any dizziness or blurred vision, double vision or slurred speech. If his little short of breath and coughing. No chest pain. No urinary complaints, no dysuria urgency, no vomiting or diarrhea or abdominal pain. No fever. He smokes about 1 pack per day but he desires to quit today and he agrees to the nicotine patch. No alcohol or illicit drugs. Vitals are stable and patient is afebrile Has unremarkable CBC, INR, BMP, liver enzymes, troponin. EKG showing normal sinus rhythm at [address]-T changes CT of the brain: No acute process CTA of the head and neck: 60% stenosis of the right ICA and 50% stenosis of the left ICA 11/01. Patient seen and examined. Continues to have right-sided weakness. Right-sided facial droop noticeable. Speech is slightly slurred 11/02. Patient seen and examined. States that there is slight improvement in th e strength of his right leg and foot REVIEW OF SYSTEMS: CONSTITUTIONAL: No fever, no malaise,. CARDIOVASCULAR: No chest pain, no palpitations, no syncope. PULMONARY: No shortness of breath, no cough, GASTROINTESTINAL: No diarrhea, no abdominal pain. PHYSICAL EXAMINATION: GENERAL: The patient is alert and oriented x3, not in any acute distress. Well developed, well nourished. HEENT: Pupils are round and equally reacting to light. EOMI. No scleral icterus. No conjunctival pallor. Normocephalic, atraumatic. No pharyngeal erythema. No thyromegaly. CARDIOVASCULAR: S1 and S2 present. No murmurs, rubs, or gallops. PULMONARY: Chest is clear to auscultation, no wheezing or crackles. ABDOMEN: Soft, nontender, nondistended, normoactive bowel sounds. No palpable organomegaly. MUSCULOSKELETAL: No joint swelling or deformity. EXTREMITIES: No cyanosis, clubbing, or pedal edema. NEUROLOGICAL: Muscle strength is 0/5 in right upper and 1/5 in the right lower lower extremity. Right facial droop seen. SKIN: No rashes. Assessment and plan Acute CVA with right hemiparesis Bilateral carotid artery stenosis, right side 60%, left side 50% asthma, with mild exacerbation Nicotine dependence Plan: Monitor vital signs Continue telemetry monitoring Continue neuro checks CTA head and neck showed: Plaque formation proximal ICA bilaterally, approximate 60% stenosis right and 50% on the left Carotid Doppler, revealed greater than 70% stenosis bilateral ICA. MRI brain showed acute/subacute CVA of the left posterior limb internal capsule with extension into the left tadeo radiata Follow-up on 2-D echo Continue with aspirin and brillinta Started Norvasc 5 mg daily. Ordered IV hydralazine 10 mg every 6 hourly when necessary for blood pressure of systolic more than 180 Continue with bronchodilator and we budesonide inhaler Follow-up on neurology recommendations follow-up with vascular surgery recommendations regarding endarterectomy DVT prophylaxis: Objective - Vital Signs Vital signs: Vital Signs Temp 98.0 F 11/02/22 08:00 Pulse 73 11/02/22 08:00 Resp 18 11/02/22 08:00 BP 165/91 11/02/22 08:00 Pulse Ox 96 11/02/22 08:00 FiO2 Intake & Output 11/01/22 11/02/22 11/02/22 18:59 06:59 18:59 Intake Total 120 120 Output Total 1000 350 500 Balance -880 -350 -380 Intake: Oral 120 120 Output: Urine 1000 350 500 Other: Voiding Method Urinal Urinal Urinal # Bowel Movements 1 - Labs CBC & Chem 7: 11/02/22 09:27 11/02/22 09:27 Labs: Abnormal Lab Results - Last 24 Hours (Table) 11/02/22 Range/Units 09:27 Chloride 112 H (98-107) mmol/L Glucose 100 H (74-99) mg/dL
[2022-11-02] MEDS: amLODIPine 5 MG TAB PO SCH (14:02)
--- NOTE | 2022-11-02 16:16 | CA ---
Transthoracic Echo Report Name: Camacho Bowens Age: 71 Gender: M : 1950 Exam Date: 11/02/2022 14:26 Exam Location: [facility] Ht (in): 72 Wt (lb): 151 Ordering Physician: Shay Rosa MD Attending/Referring Phys: Tie Presser Alyssa Stearns RDCS Procedure CPT: Indications: CVA Cardiac Hx: Technical Quality: Contrast 1: Total Dose (mL): Contrast 2: Total Dose (mL): MEASUREMENTS (Male / Female) Normal Values 2D ECHO LV Diastolic Diameter PLAX 4.5 cm 4.2 - 5.9 / 3.9 - 5.3 cm LV Systolic Diameter PLAX 4.0 cm IVS Diastolic Thickness 1.2 cm 0.6 - 1.0 / 0.6 - 0.9 cm LVPW Diastolic Thickness 0.9 cm 0.6 - 1.0 / 0.6 - 0.9 cm LV Relative Wall Thickness 0.5 LA Systolic Diameter LX 3.3 cm 3.0 - 4.0 / 2.7 - 3.8 cm M-MODE MV E Point Septal Separation 0.5 cm DOPPLER MV Area PHT 4.5 cm??? Mitral E Point Velocity 63.2 cm/s Mitral A Point Velocity 55.6 cm/s Mitral E to A Ratio 1.1 MV Deceleration Time 170.3 ms MV E' Velocity 6.8 cm/s Mitral E to MV E' Ratio 9.3 FINDINGS Left Ventricle Mildly increased septal wall thickness. Left ventricular ejection fraction is estimated at 55%. Left ventricular cavity size normal. Right Ventricle Normal right ventricular size and function. Right ventricular systolic pressure within normal limits. Right Atrium Normal right atrial size. Left Atrium Normal left atrial size. BUBBLE STUDY PERFORMED NO CROSSING NOTED. Mitral Valve Structurally normal mitral valve. Mild mitral regurgitation. Aortic Valve Trileaflet aortic valve. Tricuspid Valve Structurally normal tricuspid valve. Mild tricuspid regurgitation. Pulmonic Valve Structurally normal pulmonic valve. Pericardium Normal pericardium. Aorta Normal size aortic root and proximal ascending aorta. CONCLUSIONS Normal LV systolic function Negative bubble study Previewed by: Dr. Faizan Call MD (Electronically Signed) Final Date: 02 November 2022 16:15
[2022-11-02] MEDS ORDERED: ALPRAZolam 0.25 MG TAB PO PRN (17:45)
[2022-11-02] MEDS: ATORVASTATIN 40 MG TAB PO SCH (20:55)
--- NOTE | 2022-11-02 21:34 | P.PN ---
Subjective Progress Note Date: 11/02/22 Patient was seen for a follow-up. Patient has developed worsening of each numbness of the right side. His right arm is completely flaccid. He has very significant weakness of the right leg as well. Also has mildly slurred speech and right facial droop. 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 Objective - Vital Signs Vital signs: Vital Signs Temp 98.0 F 11/02/22 08:00 Pulse 73 11/02/22 08:00 Resp 18 11/02/22 08:00 BP 165/91 11/02/22 08:00 Pulse Ox 96 11/02/22 08:00 FiO2 Intake & Output 11/01/22 11/02/22 11/02/22 18:59 06:59 18:59 Intake Total 120 120 Output Total 1000 350 500 Balance -880 -350 -380 Intake: Oral 120 120 Output: Urine 1000 350 500 Other: Voiding Method Urinal Urinal Urinal # Bowel Movements 1 - Exam Patient is alert and awake, fully oriented. Speech is mildly dysarthric. No aphasia. Cranial nerves significant for right facial weakness, central type. Tongue protrudes the midline. Visual painter are full. No neglect. On muscle strength testing, the right arm is completely flaccid with no movement. Patient's right hip flexion is 3+, ankle dorsiflexion is very weak about 1-2. Patient's foot is spastic dystonically inverted. Muscle strength is normal on the left side. Sensations are equal with no neglect. Cerebellar functions cannot be tested on the right side. Normal coordination on the left. - Labs CBC & Chem 7: 11/02/22 09:27 11/02/22 09:27 Labs: Abnormal Lab Results - Last 24 Hours (Table) 11/02/22 Range/Units 09:27 Chloride 112 H (98-107) mmol/L Glucose 100 H (74-99) mg/dL Assessment and Plan Assessment: * Acute ischemic stroke with right hemiparesis. Mechanism of stroke likely due to lacunar stroke from small vessel disease versus distal embolic from carotid disease. * Bilateral carotid stenosis at least 70%. * Hypertension * Tobacco use Plan: * MRI of the brain without contrast revealed acute/subacute CVA of the left posterior limb of the internal capsule with extension superiorly into the left tadeo radiata. Nonspecific white matter disease. I personally reviewed MRI, agree with the findings. Appears lacunar stroke from small vessel disease. * Patient's stroke appears to have progressed since admission. He has been maintained on DAP, statins, maintained on permissive hypertension (not on any antihypertensives), on IV fluids at 75 mL per hour. Despite all these measures, the stroke did progress. Probably completed stroke. * 2-D echo with bubble study revealed normal left ventricular systolic function with EF 55%. Left atrial size is normal. Bubble study performed, no crossing noted. Mitral valve and aortic valve are normal. * Telemetry monitoring showing sinus rhythm, with some bigeminy and PVCs. No other arrhythmia. * CTA head and neck showed: Plaque formation proximal ICA bilaterally, approximate 60% stenosis right and 50% on the left * Carotid Doppler, revealed greater than 70% stenosis bilateral ICA. * Vascular surgery input appreciated. Patient to undergo bilateral CEA as an outpatient in one to 2 weeks after patient has been stabilized. * Fasting a.m. lipid panel with cholesterol 164, LDL 95, HDL 46 and t riglycerides 112. Continue Lipitor 40 mg daily * Hemoglobin A1c 5.5 * May slowly optimize blood pressure. Keep blood pressure between 130 to 150 systolic. Avoid hypotension. * Close neuro checks as per protocol. * Continue aspirin and Brilinta 90 mg twice a day. Patient was not on any antiplatelet medication at home. * Recommend complete tobacco cessation. * DVT prophylaxis: Heparin 5000 units subcu every 8 hours * Patient to be transferred to inpatient rehab soon. * Dr. Edgar Barajas will resume neurology service in the morning.
[2022-11-03] MEDS: SODIUM CHLORIDE 0.9% 1,000 ML IV SCH ×2 (01:00→11:17)
[2022-11-03] MEDS: ASPIRIN 81 MG PO SCH (08:20)
[2022-11-03] MEDS: HEPARIN SODIUM,PORCINE/PF 5,000 UNIT/0.5 ML SYRINGE SQ SCH ×2 (08:20→20:23)
[2022-11-03] MEDS: FAMOTIDINE 20 MG TAB PO SCH ×2 (08:20→20:23)
[2022-11-03] MEDS: amLODIPine 5 MG TAB PO SCH (08:20)
[2022-11-03] MEDS: TICAGRELOR 90 MG TAB PO SCH ×2 (08:20→20:23)
[2022-11-03] MEDS: IPRATROPIUM-ALBUTEROL 3 ML NEB INHALATION PRN ×4 (08:24→19:39)
[2022-11-03] MEDS: BUDESONIDE 0.5 MG/2 ML NEBU INHALATION SCH ×2 (08:24→19:39)
[2022-11-03] MEDS: NICOTINE 21MG/24HR PATCH TRANSDERM SCH (09:16)
--- NOTE | 2022-11-03 10:47 | P.PN ---
Subjective Progress Note Date: 11/03/22 Principal diagnosis: Carotid stenosis Patient was seen and examined today as a follow-up for acute ischemic stroke with bilateral ICA stenosis. Patient states today he feels a little bit better feels that his speech is low bit better. Right upper extremity is still flaccid. Right lower extremity still weak but he states he is able to move it. Patient is currently on aspirin, Renick tie and a atorvastatin. Neurology recommending outpatient follow-up with intervention. Objective - Vital Signs Vital signs: Vital Signs Temp 97.9 F 11/03/22 08:16 Pulse 85 11/03/22 08:43 Resp 20 11/03/22 08:16 BP 171/96 11/03/22 08:16 Pulse Ox 97 11/03/22 08:16 FiO2 Intake & Output 11/02/22 11/03/22 11/03/22 18:59 06:59 18:59 Intake Total 120 120 Output Total 1000 300 400 Balance -880 -300 -280 Intake: Oral 120 120 Output: Urine 1000 300 400 Other: Voiding Method Urinal Urinal - Labs CBC & Chem 7: 11/02/22 09:27 11/02/22 09:27 Labs: Abnormal Lab Results - Last 24 Hours (Table) 11/02/22 Range/Units 09:27 Chloride 112 H (98-107) mmol/L Glucose 100 H (74-99) mg/dL Assessment and Plan Assessment: 1. Bilateral internal carotid artery stenosis, greater than 70% bilaterally 2. Right extremity weakness, dysarthria 3. MRI of brain without contrast revealed acute/subacute CVA of the left posterior limb of the internal capsule with extension superiorly into the left tadeo radiata., Lacunar stroke from small vessel disease per neurology 3. Current tobacco abuse Plan: 1. Continue aspirin, Brilinta, and statin 2. Continue with speech, physical, and occupational therapy 3. Discussed with patient follow-up this week with Dr. Blakely in the office to schedule outpatient left carotid endarterectomy. Right carotid endarterectomy date to be D term and following. Thank you for this consultation, patient is clear from vascular surgery for discharge. We will sign off at this time. The impression and plan of care has been dictated as directed. Dr. Fitzgerald I performed a history and examination of this patient, discussed the same with the dictator. I agree with the dictator's note ,documented as a scribe. Any additional findings or plans will be noted.
[2022-11-03 11:53] LABS: ALT 20 U/L (4-49); AST 27 U/L (17-59); African American GFR (CKD) >90 (>60 ml/min/1.73 sqM); Albumin 4.4 g/dL (3.5-5.0); Alkaline Phosphatase 76 U/L (38-126); Anion Gap 11 mmol/L; Blood Urea Nitrogen 14 mg/dL (9-20); Calcium 9.1 mg/dL (8.4-10.2); Carbon Dioxide 20 mmol/L (22-30); Chloride 110 mmol/L (98-107); Glucose 107 mg/dL (74-99); Non-African American GFR(CKD) >90 (>60 ml/min/1.73 sqM); Potassium 4.3 mmol/L (3.5-5.1); Sodium 141 mmol/L (137-145); Total Bilirubin 0.7 mg/dL (0.2-1.3); Total Protein 7.6 g/dL (6.3-8.2)
[2022-11-03 11:58] LABS: HCT 48.1 % (39.0-53.0); HGB 15.6 gm/dL (13.0-17.5); MCHC 32.3 g/dL (31.0-37.0); MCV 92.8 fL (80.0-100.0); Mean Platelet Volume 8.3; Platelet Count 249 k/uL (150-450); RBC 5.18 m/uL (4.30-5.90); RDW 13.6 % (11.5-15.5); WBC 14.4 k/uL (3.8-10.6)
[2022-11-03] MEDS: ATORVASTATIN 40 MG TAB PO SCH (20:23)
[2022-11-04 04:15] VITALS: RESP 16
--- NOTE | 2022-11-04 05:48 | P.CONS ---
History of Present Illness - Chief Complaint Gait disturbance, right hemiparesthesias - History of Present Illness I had the opportunity to see patient for inpatient rehab consultation. Patient admitted to Dr. sanz October to acute onset right-sided weakness. Seen by Dr. Boland who notes bilateral carotid disease. Seen by neurology, Dr. douglass for the stroke. Initial head CT demonstrated only maxillary sinusitis. Angiogram CT demonstrated greater than 60% stenosis right and left carotid disease. Chest x-ray was COPD. Carotid Doppler done. Brain MRI due demonstrate left internal capsule infarct and non-white matter change. His started therapies. PT reports pneumocystis for bed mobility and moderate assistance to person for transfer. OT reports supervision for feeding, moderate assistance for grooming and upper dressing, total assistance for lower dressing and toileting maximal assistance for bathing. 2 person moderate assistance functional debility and transfer. Speech therapy prescribed. Previous functional history as elicited from patient: 71-year-old right-handed white male who is lives in one floor home, mobile, with who has COPD. Patient generally does the cooking or laundry or the buyout. Patient and can drive. Patient independent with sitting shower, gait without device. PCP Dr. Adin Downing. History of smoking and drinking. Review of Systems Review of systems: ENT: Denies sneezes or discharge. Eyes: Denies discharge or photophobia. Cardiac: Denies chest pain or palpitation. Pulmonary: Denies cough or shortness of breath. Gastrointestinal: Denies nausea, emesis, constipation, diarrhea. Genitourinary: Denies discharge or frequency. Musculoskeletal: Denies muscle or bone aches. Neurologic: Right-sided weakness and numbness. Endocrine: Denies shakes or sweats. Oncology: Denies cancers. Dermatologic: Denies rash, itching, pruritus. ALLERGY/immunology: Denies sneezes, rashes. Past Medical History Past Medical History: Asthma History of Any Multi-Drug Resistant Organisms: None Reported Past Surgical History: No Surgical Hx Reported Past Psychological History: No Psychological Hx Reported Past Alcohol Use History: Occasional Past Drug Use History: None Reported - Past Family History Mother Family Medical History: Myocardial Infarction (OR) Medications and Allergies Home Medications Medication Instructions Recorded Confirmed Type Aspirin 81 mg PO DAILY #30 tab 11/03/22 Rx Atorvastatin [Lipitor] 40 mg PO HS #30 tab 11/03/22 Rx Ticagrelor [Brilinta] 90 mg PO BID #60 tab 11/03/22 Rx amLODIPine [Norvasc] 5 mg PO DAILY #30 tab 11/03/22 Rx Allergies Allergy/AdvReac Type Severity Reaction Status Date / Time No Known Allergies Allergy Verified 10/31/22 07:26 Physical Exam Vitals: Vital Signs Temp Pulse Pulse Resp BP Pulse Ox 11/04/22 04:00 97.8 F 83 16 170/88 96 11/04/22 02:00 18 11/04/22 00:00 97.5 F L 86 18 160/94 95 11/03/22 20:00 98.1 F 90 18 150/82 95 11/03/22 19:51 72 11/03/22 19:39 74 11/03/22 16:39 98 F 85 20 177/77 93 L 11/03/22 15:59 84 11/03/22 15:46 81 11/03/22 12:12 80 11/03/22 11:58 74 11/03/22 11:13 97.5 F L 84 20 178/84 95 11/03/22 08:43 85 11/03/22 08:24 83 11/03/22 08:16 97.9 F 89 20 171/96 97 Intake and Output 11/03/22 11/03/22 11/04/22 14:59 22:59 06:59 Intake Total 120 520 Output Total 400 200 Balance -280 520 -200 Intake: Intake, IV Titration 400 Amount Sodium Chloride 0.9% 1, 400 000 ml @ 130 mls/hr IV . Q7H42M [facility] Rx#:[id number] Oral 120 120 Output: Urine 400 200 Other: Voiding Method Urinal Urinal Skin: Good color, texture, turgor. General: Thin build and comfortable appearance. Head: Normocephalic, atraumatic. Eyes: Symmetric. Pupils equal round. Ears: Symmetric. Hearing within normal limits. Mouth: Clear. Neck: Supple. Carotid without bruit. Cardiac: Regular rate and rhythm. Lungs: Clear anteriorly and posteriorly. Abdomen: Soft active nontender. Extremities: Normal tone. Neurological: Mental status: Alert, cooperative, pleasant. Cranial nerves: Symmetric facial tone and trapezius. Motor: Normal strength and isolation left side. Right side poor. Sensation: Intact left side. Diminished right-sided. DTRs: Symmetric and equal throughout. Mobility: Requires physical assist for bed mobility. Results CBC & Chem 7: 11/03/22 10:40 11/03/22 10:40 Labs: Abnormal Lab Results - Last 24 Hours (Table) 11/03/22 11/03/22 Range/Units 10:40 10:40 WBC 14.4 H (3.8-10.6) k/uL Chloride 110 H (98-107) mmol/L Carbon Dioxide 20 L (22-30) mmol/L Glucose 107 H (74-99) mg/dL Assessment and Plan (1) Cerebrovascular accident (CVA) Current Visit: Yes Status: Acute Code(s): I63.9 - CEREBRAL INFARCTION, UNSPECIFIED SNOMED Code(s): 703544909 Plan: Comments and plan: Patient has diagnoses gait disturbance related to stroke result in right hemiplegia. Patient is started therapies and patient demonstrated safety concerns that the ability to tolerate and benefit from therapies. Diagnosis stroke with right hemiplegia of course is a classic inpatient rehab admission diagnosis. Patient insurance however may closely scrutinize and IPR are admission and patient advised on this possibility.
[2022-11-04] MEDS: IPRATROPIUM-ALBUTEROL 3 ML NEB INHALATION PRN ×3 (08:03→15:25)
[2022-11-04] MEDS: BUDESONIDE 0.5 MG/2 ML NEBU INHALATION SCH (08:03)
[2022-11-04 09:07] LABS: Basophils # (A) 0.1 k/uL (0-0.2); Basophils % (A) 1 %; Eosinophils # (A) 0.2 k/uL (0-0.7); Eosinophils % (A) 2 %; HCT 43.3 % (39.0-53.0); HGB 14.7 gm/dL (13.0-17.5); Lymphocytes % (A) 10 %; MCH 31.2 pg (25.0-35.0); MCHC 33.8 g/dL (31.0-37.0); MCV 92.3 fL (80.0-100.0); Mean Platelet Volume 7.8; Monocytes # (A) 0.6 k/uL (0-1.0); Monocytes % (A) 6 %; Neutrophils # (A) 7.9 k/uL (1.3-7.7); Neutrophils % (A) 80 %; Platelet Count 243 k/uL (150-450); RBC 4.69 m/uL (4.30-5.90); RDW 13.3 % (11.5-15.5); WBC 9.8 k/uL (3.8-10.6)
[2022-11-04] MEDS: ASPIRIN 81 MG PO SCH (09:12)
[2022-11-04] MEDS: amLODIPine 5 MG TAB PO SCH (09:12)
[2022-11-04] MEDS: TICAGRELOR 90 MG TAB PO SCH (09:12)
[2022-11-04] MEDS: HEPARIN SODIUM,PORCINE/PF 5,000 UNIT/0.5 ML SYRINGE SQ SCH (09:12)
[2022-11-04] MEDS: FAMOTIDINE 20 MG TAB PO SCH (09:12)
[2022-11-04] MEDS: NICOTINE 21MG/24HR PATCH TRANSDERM SCH (09:13)
[2022-11-04 09:14] LABS: African American GFR (CKD) >90 (>60 ml/min/1.73 sqM); Anion Gap 9 mmol/L; Blood Urea Nitrogen 17 mg/dL (9-20); Calcium 8.7 mg/dL (8.4-10.2); Carbon Dioxide 22 mmol/L (22-30); Chloride 110 mmol/L (98-107); Glucose 116 mg/dL (74-99); Non-African American GFR(CKD) >90 (>60 ml/min/1.73 sqM); Sodium 141 mmol/L (137-145)
--- NOTE | 2022-11-04 14:54 | P.DS ---
Providers Date of admission: 10/31/22 04:03 Expected date of discharge: 11/04/22 Attending physician: Rafita Jimenez Consults: 10/31/22 04:02 Consult Physician Routine Consulting Provider: Yonathan Rodgers Consult Reason/Comments: carotid stenosis Do you want consulting provider notified?: Yes Consult Physician Routine Consulting Provider: Shay Rosa Consult Reason/Comments: cva Do you want consulting provider notified?: Yes 11/03/22 16:42 Consult Physician Routine Consulting Provider: Dannie Sweeney Consult Reason/Comments: INPATIENT rehab, CVA Do you want consulting provider notified?: Yes Primary care physician: Camacho Downing Hospital Course: Final diagnosis Acute CVA with right hemiparesis Bilateral carotid artery stenosis right side is 60% left-sided 50% Asthma with mild exacerbation Continued ongoing nicotine dependence Hypertension GI prophylaxis DVT prophylaxis Full code Discharge disposition Patient is being discharged in a stable condition with guarded prognosis to [facility]. Patient will follow-up with Dr. Camacho Downing in the outpatient setting upon discharge. Patient is to follow-up with vascular surgery Dr. Fitzgerald along with neurology in the outpatient setting. Total time taken is greater than 35 minutes. Hospital course This is a 71-year-old male who was recently admitted with right-sided weakness and not being able to move his arms feeling numb and was admitted for acute CVA and being closely monitored. Patient was seen and evaluated by neurology along with vascular surgery and CTA noted head and neck 60% stenosis of the right ICA and 50% stenosis on the left ICA recommending surgical intervention and outpatient follow-up. Patient was admitted with acute CVA with right hemiparesis as noted on MRI which showed acute to subacute CVA of the left posterior limb internal capsule with extension into the left tadeo radiata. Patient will continue on Proventil and other medications including aspirin and statin and strongly recommending outpatient follow-up with neurology and again vascular surgery regarding his possible endarterectomy. Patient continues with symptoms although is slightly improved and continues with weakness and would benefit from rehab. Patient will be going to [facility] today for continued strength and mobility. Currently no reports of chest pain, shortness of breath, or palpitations. Patient is afebrile. No reports of nausea or vomiting and patient is tolerating diet. Patient [facility] be going [facility]. Guarded prognosis. Physical exam: Gen: This is a 71-year-old male awake, alert and oriented 3, thin built, well- developed. HEENT: Head is atraumatic, normocephalic. Pupils equal, round. Sclerae is anicteric. NECK: Supple. No JVD. No lymphadenopathy. No thyromegaly. LUNGS: Diminished breath sounds bilaterally with No wheezes or rhonchi. No intercostal retractions. HEART: S1, S2 are muffled ABDOMEN: Soft. Bowel sounds are present. No masses. No tenderness. EXTREMITIES: No pedal edema. No calf tenderness. NEUROLOGICAL: Patient is awake, alert and oriented x3. Cranial nerves 2 through 12 are grossly intact. Diffusely weak Please refer to medication reconciliation sheet for a list of medications. The impression and plan of care has been dictated by Keeley Lewis, Nurse Practitioner as directed. Dr. Shaun MD I have performed a history and examination and MDM of this patient, discussed the same with the dictator, and agree with the dictator's assessment and plan as written ,documented as a scribe. Based on total visit time, I have performed more than 50% of the visit. Patient Condition at Discharge: Fair Plan - Discharge Summary Discharge Rx Participant: No New Discharge Prescriptions: New Aspirin 81 mg PO DAILY #30 tab Atorvastatin [Lipitor] 40 mg PO HS #30 tab Budesonide [Pulmicort] 0.5 mg INHALATION RT-BID ml Ticagrelor [Brilinta] 90 mg PO BID #60 tab amLODIPine [Norvasc] 5 mg PO DAILY #30 tab Discharge Medication List Aspirin 81 mg PO DAILY #30 tab 11/03/22 [Rx] Atorvastatin [Lipitor] 40 mg PO HS #30 tab 11/03/22 [Rx] Ticagrelor [Brilinta] 90 mg PO BID #60 tab 11/03/22 [Rx] amLODIPine [Norvasc] 5 mg PO DAILY #30 tab 11/03/22 [Rx] Budesonide [Pulmicort] 0.5 mg INHALATION RT-BID ml 11/04/22 [Rx] Follow up Appointment(s)/Referral(s): tSar Fitzgerald DO [Doctor of Osteopathic Medicine] - 1 Week Camacho Downing MD [Primary Care Provider] - 1-2 days Activity/Diet/Wound Care/Special Instructions: Patient is going to [facility] Activity as tolerated Recommend outpatient follow-up with neurology along with vascular surgery in one week to discuss possible surgical intervention with Dr. Blakely Follow-up with primary care provider on discharge Continue heart healthy diet Discharge Disposition: TRANSFER TO SNF/ECF
--- NOTE | 2022-11-04 15:02 | P.PN ---
Subjective Progress Note Date: 11/04/22 I am seeing the patient for the first time during this admission. To recap, patient had left internal capsule ischemic stroke. He does have history of hypertension, tobacco use. Please refer to Dr. Rosa's notes for further details. Per nurse, patient did not get accepted to inpatient rehab because of insurance and will be going to subacute rehab. Objective - Vital Signs Vital signs: Vital Signs Temp 97.5 F L 11/04/22 11:27 Pulse 77 11/04/22 11:27 Resp 16 11/04/22 11:27 BP 167/87 11/04/22 11:27 Pulse Ox 100 11/04/22 11:27 FiO2 Intake & Output 11/03/22 11/04/22 11/04/22 18:59 06:59 18:59 Intake Total 640 480 Output Total 400 400 Balance 240 -400 480 Intake: Intake, IV Titration 400 Amount Sodium Chloride 0.9% 1, 400 000 ml @ 130 mls/hr IV . Q7H42M ON LICENSE OF [facility] Rx#:[id number] Oral 240 480 Output: Urine 400 400 Other: Voiding Method Urinal Urinal - Exam GENERAL: The patient is lying in bed and is not in acute distress. NEUROLOGICAL: Higher mental function: The patient is awake, alert, oriented to self, place and time. Patient is following commands. No aphasia and no neglect. Cranial nerves: The pupils are round, equal and reactive to light and accommodation. Visual painter are full to confrontation throughout. Extraocular movement is intact no nystagmus is noted. The facial strength is right lower facial weakness. Tongue is midline and moved [id number] without any diff iculty. Has mild to moderate dysarthria. Motor: The strength is right upper extremity is 0, right lower is 2. Left side is 5 over 5 throughout. Decrease tone over the right upper. Normal bulk. Cerebellum: Normal finger to nose on the left and unable to assess right because of weakness. Sensation: Sensation is normal to touch throughout. - Labs CBC & Chem 7: 11/04/22 08:37 11/04/22 08:37 Labs: Abnormal Lab Results - Last 24 Hours (Table) 11/04/22 11/04/22 Range/Units 08:37 08:37 Neutrophils # 7.9 H (1.3-7.7) k/uL Chloride 110 H (98-107) mmol/L Glucose 116 H (74-99) mg/dL Assessment and Plan Assessment: * Acute ischemic stroke (left posterior limb of internal capsule) with right hemiparesis. Mechanism of stroke likely due to lacunar stroke from small vessel disease. * Bilateral carotid stenosis at least 70%. * Hypertension * Tobacco use Plan: * MRI of the brain without contrast revealed acute/subacute CVA of the left posterior limb of the internal capsule with extension superiorly into the left tadeo radiata. Nonspecific white matter disease. I personally reviewed MRI, agree with the findings. Appears lacunar stroke from small vessel disease. * Patient's stroke appears to have progressed since admission. He has been maintained on DAP, statins, maintained on permissive hypertension (not on any antihypertensives), on IV fluids at 75 mL per hour. Despite all these measures, the stroke did progress. Probably completed stroke. * 2-D echo with bubble study revealed normal left ventricular systolic function with EF 55%. Left atrial size is normal. Bubble study performed, no crossing noted. Mitral valve and aortic valve are normal. * Telemetry monitoring showing sinus rhythm, with some bigeminy and PVCs. No other arrhythmia. * CTA head and neck showed: Plaque formation proximal ICA bilaterally, approximate 60% stenosis right and 50% on the left * Carotid Doppler, revealed greater than 70% stenosis bilateral ICA. * Vascular surgery input appreciated. Patient to undergo bilateral CEA as an outpatient in one to 2 weeks after patient has been stabilized. * Fasting a.m. lipid panel with cholesterol 164, LDL 95, HDL 46 and triglycerides 112. Continue Lipitor 40 mg daily * Hemoglobin A1c 5.5 * Close neuro checks as per protocol. * Continue aspirin and Brilinta 90 mg twice a day. Patient was not on any antiplatelet medication at home. Recommend to be on it for about 3 months and after that stop ASA from neurological perspective. * Recommend complete tobacco cessation. * DVT prophylaxis: Heparin 5000 units subcu every 8 hours * Upon discharge, patient to follow-up with neurologist as outpatient within 1-2 weeks. Pending discharge to rehab (was not accepted to inpatient rehab because of insurance coverage and will likely go to subacute rehab). Time with Patient: Less than 30
[2022-11-04 16:53] VITALS: BP 166/95; PULSE 88; TEMP 98
== END 2022-11-04 17:02 | DRG 65 ==
LOC: EC 03:08 → 3SCARD 04:03
PROVIDERS: ADMIT Hospitalist; ATTEND Hospitalist
DX: I63.81 Other cerebral infarction due to occlusion or stenosis of small artery (principal); G81.91 Hemiplegia, unspecified affecting right dominant side; J45.901 Unspecified asthma with (acute) exacerbation; J44.9 Chronic obstructive pulmonary disease, unspecified; R47.1 Dysarthria and anarthria; R29.709 NIHSS score 9; I10 Essential (primary) hypertension; I49.3 Ventricular premature depolarization; J32.0 Chronic maxillary sinusitis; I65.23 Occlusion and stenosis of bilateral carotid arteries; F17.210 Nicotine dependence, cigarettes, uncomplicated; Z71.6 Tobacco abuse counseling; Z79.899 Other long term (current) drug therapy
CPT/HCPCS: 36415; 70450; 70496; 70498; 70551; 71046; 80048; 80053; 80061; 81003; 83036; 84484; 85025; 85027; 85610; 85730; 93306; 93880; 94640; 96361; 96372; 96374; 96375; 99291

== ENCOUNTER → 2023-02-21 | Outpatient (CLI) | payer MEDICARE ==
--- NOTE | 2023-02-21 12:27 | MR ---
EXAMINATION TYPE: MR angio head wo/neck wo/w con DATE OF EXAM: 02/21/2023 11:39 AM CLINICAL INDICATION:Male, 72 years old with history of I69.90, I65.21; CVA. Abnormal US/CT. COMPARISON: Ultrasound carotid duplex 10/31/2022 CT 10/31/2022 Technical: MRA brain: 3-D [id number] Axial with MIP and 3-D reconstruction. Performed on a separate workstat ion. MRA neck: Multiplanar, multi-sequence imaging as well as [id number] and phase was performed extra cranial vasculature of the neck. 3-D reformatted images and maximum intensity projection reformatted images were submitted for evaluation, these are performed on a separate workstation. IV Contrast: 7 cc Gadavist Findings: Vertebral arteries: The vertebral arteries are patent. The right vertebral artery is dominant. Basilar artery: The basilar artery is intact. The basilar artery bifurcation is normal. Internal Carotid arteries: The cervical, petrous, cavernous and supraclinoid segments are normal. Ath erosclerotic plaque of the internal carotid arteries intracranial portions. JENNIFER: Patent with no evidence of aneurysm. ACOM: Present without evidence of aneurysm. MCA: Patent with no evidence of aneurysm. SHEET TURNER: origin of the right posterior cerebral artery. PCOM: Hypoplastic left. Motion limited exam RIGHT CAROTID SYSTEM: The common carotid artery is patent. The carotid bifurcations demonstrates athe rosclerotic plaque with greater than 70% stenosis of the right internal carotid artery proximal porti on just past the bifurcation with tortuosity noted. Findings similar CT 10/31/2022 given differences i n technique. The internal carotid artery is patent. LEFT CAROTID SYSTEM: The common carotid artery is patent. The carotid bifurcations atherosclerotic p laque with tortuosity of the proximal internal carotid artery resulting in at least 50% stenosis. The internal carotid artery is patent. Findings similar CT 10/31/2022 given differences in technique. The origins of the great vessels and vertebral arteries appear unremarkable. The right vertebral art mariel is dominant. IMPRESSION: Mild motion artifact, there is at least 70% stenosis of the right and 50% stenosis of the left proximal portions of the internal carotid arteries. Findings are similar to prior CT on 10/31/20 22 given differences in technique. Internal carotid arteries are patent. 1. No evidence of intracranial aneurysm or significant stenosis. 2. The vertebral arteries are patent. 3. No evidence aneurysm.
== END | disposition home or self-care (01) ==
LOC: RADMRIMAIN 10:02
PROVIDERS: ATTEND Psychiatry & Neurology Neurology
DX: I65.23 Occlusion and stenosis of bilateral carotid arteries (principal); I69.90 Unspecified sequelae of unspecified cerebrovascular disease
CPT/HCPCS: 70544; 70549; A9585

== ENCOUNTER 2023-02-25 11:40 | Observation (INO) | payer MEDICARE ==
--- NOTE | 2023-02-25 12:32 | ED ---
General Adult HPI - General Chief complaint: Chest Pain Stated complaint: Chest Pain Time Seen by Provider: 02/25/23 11:52 Source: patient Mode of arrival: wheelchair Limitations: no limitations - History of Present Illness Initial comments: Dictation was produced using [employer] dictation software. please excuse any grammatical, word or spelling errors. Chief Complaint: 72-year-old male with past medical history of CVA and residual right-sided deficits presents to the ER for chest pain History of Present Illness: 72-year-old male who presents emergency Department with chest pain. Patient was sent here by his physical therapist. After physical therapy today patient noticed he was having some left-sided anterior chest pain. Patient denies any history of coronary artery disease or heart attack. Patient states that his symptoms do not radiate to his shoulder, extremity or jaw. Not associated with diaphoresis or nausea. No shortness of breath. Denies any cough. The ROS documented in this emergency department record has been reviewed and confirmed by me. Those systems with pertinent positive or negative responses baltazar ve been documented in the HPI. All other systems are other negative and/or noncontributory. PHYSICAL EXAM: General Impression: Alert and oriented x3, not in acute distress HEENT: Normocephalic atraumatic, extra-ocular movements intact, pupils equal and reactive to light bilaterally, mucous membranes moist. Cardiovascular: Heart regular rate and rhythm Chest: Able to complete full sentences, no retractions, no tachypnea Abdomen: abdomen soft, non-tender, non-distended, no organomegaly Musculoskeletal: Pulses present and equal in all extremities, no peripheral edema Motor: no focal deficits noted Neurological: CN II-XII grossly intact, right-sided upper and right lower extremity weakness Skin: Intact with no visualized rashes Psych: Normal affect and mood ED course: 72-year-old male with atypical chest pain typical features. Vital signs upon arrival are within acceptable limits. EKG does not show any signs of ischemia or infarction. Nursing notes and chart review was performed EKG interpreted by me: Ventricular rate 85, sinus rhythm,. Interval 191, QRS 113, QTc 449. No MI prolongation, no QTC prolongation, no ST or T-wave changes noted. EKG compared to 10/31/2022 showing no changes. Overall, this EKG is unremarkable Was pt. sent in by a medical professional or institution (Dr., PA, SERVICE DISPATCHER, urgent care, hospital, or fdc...) When possible be specific @ -From home by physical therapist Did you speak to anyone other than the patient for history (EMS, parent, family, police, friend...)? What history was obtained from this source @ -No Did you review nursing and triage notes (agree or disagree)? Why? @ -I reviewed and agree with nursing and triage notes Were old charts reviewed (outside hosp., previous admission, EMS record, old EKG, old radiological studies, urgent care reports/EKG's, fdc records)? Report findings @ -No old charts were reviewed Differential Diagnosis (chest pain, altered mental status, abdominal pain women, abdominal pain men, vaginal bleeding, musculoskeletal, weakness, fever, dyspnea, syncope, headache, dizziness, GI bleed, back pain, seizure, CVA, palpatations, mental health)? @ -Differential Chest Pain: Stable Angina, Unstable Angina, STEMI, NSTEMI Aortic Dissection, Pneumothorax, Musculoskeletal, Esophageal Spasm GERD, Cholecystitis, Pancreatitis, Zoster, this is not meant to be an all-inclusive list. EKG interpreted by me (3pts min.). @ -see above X-rays interpreted by me (1pt min.). @ -Nonacute CT interpreted by me (1pt min.). @ -None done U/S interpreted by me (1pt. min.). @ -None done What testing was considered but not performed or refused? (CT, X-rays, U/S, labs)? Why? @ -None What meds were considered but not given or refused? Why? @ -None Did you discuss the management of the patient with other professionals (professionals i.e. ASUNCION Reilly, SERVICE DISPATCHER, lab, RT, psych nurse, director of social services, key punch operator, teacher, associate loan officer, correctional counselor/case manager)? Give summary @ -Discussed with [facility] for admission Was smoking cessation discussed for >3mins.? @ -No Was critical care preformed (if so, how long)? @ -No Were there social determinants of health that impacted care today? How? (Homelessness, low income, unemployed, alcoholism, drug addiction, transportation, low edu. Level, literacy, decrease access to med. care, [facility], rehab)? @ -No Was there de-escalation of care discussed even if they declined (Discuss DNR or withdrawal of care, Hospice)? DNR status @ -No What co-morbidities impacted this encounter? (DM, HTN, Smoking, COPD, CAD, Cancer, CVA, ARF, Chemo, Hep., AIDS, mental health diagnosis, sleep apnea, morbid obesity)? @ -None Was patient admitted / discharged? Hospital course, mention meds given and route, prescriptions, significant lab abnormalities, going to OR and other pertinent info. @ -72-year-old male presents to emergency by with atypical chest pain typical features. He does have risk factors. Laboratory evaluation is unremarkable. Troponin is negative. EKG does not show any signs of ischemia or infarction. Patient reevaluated at bedside at 1:40 PM finally similar condition. Patient be admitted with cardiology consultation. Undiagnosed new problem with uncertain prognosis? @ -No Drug Therapy requiring intensive monitoring for toxicity (Heparin, Nitro, Insulin, Cardizem)? @ -No Were any procedures done? @ -No Diagnosis/symptom? Acute, or Chronic, or Acute on Chronic? Uncomplicated (without systemic symptoms) or Complicated (systemic symptoms)? @ -1. Acute chest pain, suspect ACS Side effects of treatment? @ -No Exacerbation, Progression, or Severe Exacerbation? @ -No Poses a threat to life or bodily function? How? (Chest pain, [place], [place], pneumonia, PE, COPD, DKA, ARF, appy, cholecystitis, CVA, Diverticulitis, Homicidal, Suicidal, threat to staff... and all critical care pts) @ -Yes - Related Data Home Medications Medication Instructions Recorded Confirmed Clopidogrel [Plavix] 75 mg PO BID 02/25/23 02/25/23 amLODIPine [Norvasc] 10 mg PO DAILY 02/25/23 02/25/23 Previous Rx's Medication Instructions Recorded Atorvastatin [Lipitor] 40 mg PO HS #30 tab 11/03/22 Allergies Allergy/AdvReac Type Severity Reaction Status Date / Time No Known Allergies Allergy Verified 02/25/23 13:30 Review of Systems ROS Statement: Those systems with pertinent positive or pertinent negative responses have been documented in the HPI. ROS Other: All systems not noted in ROS Statement are negative. Past Medical History Past Medical History: Asthma, CVA/TIA History of Any Multi-Drug Resistant Organisms: None Reported Past Surgical History: No Surgical Hx Reported Additional Past Surgical History / Comment(s): tumor removed from spine Past Psychological History: No Psychological Hx Reported Smoking Status: Former smoker Past Alcohol Use History: Occasional Past Drug Use History: None Reported - Past Family History Mother Family Medical History: Myocardial Infarction ([place]) General Exam Limitations: no limitations Course Vital Signs 02/25/23 11:42 Temperature 98.0 F Pulse Rate 77 Respiratory 18 Rate Blood Pressure 154/74 O2 Sat by Pulse 99 Oximetry Medical Decision Making - Lab Data Result diagrams: 02/25/23 12:26 02/25/23 12:26 Lab Results 02/25/23 02/25/23 02/25/23 Range/Units 12:26 12:26 12:26 WBC 5.7 (3.8-10.6) k/uL RBC 4.70 (4.30-5.90) m/uL Hgb 14.2 (13.0-17.5) gm/dL Hct 42.2 (39.0-53.0) % MCV 89.9 (80.0-100.0) fL MCH 30.3 (25.0-35.0) pg MCHC 33.7 (31.0-37.0) g/dL RDW 13.1 (11.5-15.5) % Plt Count 210 (150-450) k/uL MPV 7.0 Neutrophils % 64 % Lymphocytes % 20 % Monocytes % 9 % Eosinophils % 4 % Basophils % 1 % Neutrophils # 3.6 (1.3-7.7) k/uL Lymphocytes # 1.1 (1.0-4.8) k/uL Monocytes # 0.5 (0-1.0) k/uL Eosinophils # 0.2 (0-0.7) k/uL Basophils # 0.0 (0-0.2) k/uL PT 10.7 (9.0-12.0) sec INR 1.0 (<1.2) APTT 23.2 (22.0-30.0) sec Sodium 138 (137-145) mmol/L Potassium 4.0 (3.5-5.1) mmol/L Chloride 103 (98-107) mmol/L Carbon Dioxide 25 (22-30) mmol/L Anion Gap 10 mmol/L BUN 14 (9-20) mg/dL Creatinine 0.75 (0.66-1.25) mg/dL Est GFR (CKD-EPI)AfAm >90 (>60 ml/min/1.73 sqM) Est GFR (CKD-EPI)NonAf >90 (>60 ml/min/1.73 sqM) Glucose 83 (74-99) mg/dL Calcium 8.9 (8.4-10.2) mg/dL Magnesium 2.2 (1.6-2.3) mg/dL Total Bilirubin 0.7 (0.2-1.3) mg/dL AST 47 (17-59) U/L ALT 88 H (4-49) U/L Alkaline Phosphatase 61 (38-126) U/L Troponin I (0.000-0.034) ng/mL Total Protein 7.3 (6.3-8.2) g/dL Albumin 4.3 (3.5-5.0) g/dL 02/25/23 Range/Units 12:26 WBC (3.8-10.6) k/uL RBC (4.30-5.90) m/uL Hgb (13.0-17.5) gm/dL Hct (39.0-53.0) % MCV (80.0-100.0) fL MCH (25.0-35.0) pg MCHC (31.0-37.0) g/dL RDW (11.5-15.5) % Plt Count (150-450) k/uL MPV Neutrophils % % Lymphocytes % % Monocytes % % Eosinophils % % Basophils % % Neutrophils # (1.3-7.7) k/uL Lymphocytes # (1.0-4.8) k/uL Monocytes # (0-1.0) k/uL Eosinophils # (0-0.7) k/uL Basophils # (0-0.2) k/uL PT (9.0-12.0) sec INR (<1.2) APTT (22.0-30.0) sec Sodium (137-145) mmol/L Potassium (3.5-5.1) mmol/L Chloride (98-107) mmol/L Carbon Dioxide (22-30) mmol/L Anion Gap mmol/L BUN (9-20) mg/dL Creatinine (0.66-1.25) mg/dL Est GFR (CKD-EPI)AfAm (>60 ml/min/1.73 sqM) Est GFR (CKD-EPI)NonAf (>60 ml/min/1.73 sqM) Glucose (74-99) mg/dL Calcium (8.4-10.2) mg/dL Magnesium (1.6-2.3) mg/dL Total Bilirubin (0.2-1.3) mg/dL AST (17-59) U/L ALT (4-49) U/L Alkaline Phosphatase (38-126) U/L Troponin I <0.012 (0.000-0.034) ng/mL Total Protein (6.3-8.2) g/dL Albumin (3.5-5.0) g/dL Disposition Clinical Impression: Chest pain Disposition: ADMITTED IP TO THIS HOSP Condition: Fair Referrals: Camacho Downing MD [Primary Care Provider] - 1-2 days Decision Time: 13:30
[2023-02-25 12:42] LABS: Basophils % (A) 1 %; Eosinophils # (A) 0.2 k/uL (0-0.7); Eosinophils % (A) 4 %; HCT 42.2 % (39.0-53.0); HGB 14.2 gm/dL (13.0-17.5); Lymphocytes # (A) 1.1 k/uL (1.0-4.8); Lymphocytes % (A) 20 %; MCH 30.3 pg (25.0-35.0); MCHC 33.7 g/dL (31.0-37.0); MCV 89.9 fL (80.0-100.0); Monocytes # (A) 0.5 k/uL (0-1.0); Monocytes % (A) 9 %; Neutrophils # (A) 3.6 k/uL (1.3-7.7); Neutrophils % (A) 64 %; Platelet Count 210 k/uL (150-450); RDW 13.1 % (11.5-15.5); WBC 5.7 k/uL (3.8-10.6)
--- NOTE | 2023-02-25 12:45 | XR ---
EXAMINATION TYPE: XR chest 2V DATE OF EXAM: 02/25/2023 COMPARISON: 10/31/2022 INDICATION: Chest pain TECHNIQUE: Frontal and lateral views of the chest are obtained. FINDINGS: The heart size is normal. The pulmonary vasculature is normal. The lungs are clear. Osteoarthritic degenerative change of the right shoulder. Chronic rotator cuff tear is not excluded IMPRESSION: 1. No acute pulmonary process.
[2023-02-25 12:50] LABS: ALT 88 U/L (4-49); AST 47 U/L (17-59); African American GFR (CKD) >90 (>60 ml/min/1.73 sqM); Albumin 4.3 g/dL (3.5-5.0); Alkaline Phosphatase 61 U/L (38-126); Anion Gap 10 mmol/L; Blood Urea Nitrogen 14 mg/dL (9-20); Calcium 8.9 mg/dL (8.4-10.2); Carbon Dioxide 25 mmol/L (22-30); Chloride 103 mmol/L (98-107); Glucose 83 mg/dL (74-99); Magnesium 2.2 mg/dL (1.6-2.3); Non-African American GFR(CKD) >90 (>60 ml/min/1.73 sqM); Sodium 138 mmol/L (137-145); Total Bilirubin 0.7 mg/dL (0.2-1.3); Total Protein 7.3 g/dL (6.3-8.2)
[2023-02-25 12:51] LABS: Partial Thromboplastin Time 23.2 sec (22.0-30.0); Prothrombin Time 10.7 sec (9.0-12.0)
[2023-02-25] MEDS ORDERED: ASPIRIN 81 MG PO STA (13:35)
[2023-02-25] MEDS ORDERED: NITROGLYCERIN SL TABS 0.4 MG TAB SUBLINGUAL PRN (13:35)
--- NOTE | 2023-02-25 14:35 | P.HPIM ---
History of Present Illness H&P Date: 02/25/23 History of present illness; patient is a 72-year-old gentleman past medical history significant for stroke, hypertension who presented to The ER because of chest pain. Patient stated that he was all right this morning when while working with his physical therapist he started noticing chest pain which was left-sided, 3 x 10 intensity, pressure-like, nonradiating, no aggravating or relieving factors associated with this chest pain. There was no associated shortness of breath. No complaints of palpitation. Patient stated that he has been having this chest pain on and off for the last couple of weeks. Because of this chest pain, patient became concerned and came to the ER. In the ER, wander torres was worked up initial lab work showed WBC 5.7, hemoglobin 14.2 Sodium 138, potassium 4, chloride 103, BUN 14, initial troponin was negative. Initial EKG did not show acute ST segment changes. Patient was admitted for further evaluation and treatment REVIEW OF SYSTEMS: CONSTITUTIONAL: No fever, no malaise, no fatigue. HEENT: No recent visual problems or hearing problems. Denied any sore throat. CARDIOVASCULAR: As mentioned in HPI PULMONARY: No shortness of breath, no cough, no hemoptysis. GASTROINTESTINAL: No diarrhea, no nausea, no vomiting, no abdominal pain. NEUROLOGICAL: No headaches, no weakness, no numbness. HEMATOLOGICAL: Denies any bleeding or petechiae. GENITOURINARY: Denies any burning micturition, frequency, or urgency. MUSCULOSKELETAL/RHEUMATOLOGICAL: Denies any joint pain, swelling, or any muscle pain. ENDOCRINE: Denies any polyuria or polydipsia. The rest of the 14-point review of systems is negative. PHYSICAL EXAMINATION: GENERAL: The patient is alert and oriented x3, not in any acute distress. Well developed, well nourished. HEENT: Pupils are round and equally reacting to light. EOMI. No scleral icterus. No conjunctival pallor. Normocephalic, atraumatic. No pharyngeal erythema. No thyromegaly. CARDIOVASCULAR: S1 and S2 present. No murmurs, rubs, or gallops. PULMONARY: Chest is clear to auscultation, no wheezing or crackles. ABDOMEN: Soft, nontender, nondistended, normoactive bowel sounds. No palpable organomegaly. MUSCULOSKELETAL: No joint swelling or deformity. EXTREMITIES: No cyanosis, clubbing, or pedal edema. NEUROLOGICAL: Gross neurological examination did not reveal any focal deficits. SKIN: No rashes. Assessment Chest pain History of prior stroke. Hypertension Hyperlipidemia Plan; Monitor vital signs Monitor CBC Monitor CMP Continue telemetry monitoring Trend troponins ordered 2-D echo Resume home meds Consult cardiology Past Medical History Past Medical History: Asthma, CVA/TIA History of Any Multi-Drug Resistant Organisms: None Reported Past Surgical History: No Surgical Hx Reported Additional Past Surgical History / Comment(s): tumor removed from spine Past Psychological History: No Psychological Hx Reported Smoking Status: Former smoker Past Alcohol Use History: Occasional Past Drug Use History: None Reported - Past Family History Mother Family Medical History: Myocardial Infarction ([place]) Medications and Allergies Home Medications Medication Instructions Recorded Confirmed Type Atorvastatin [Lipitor] 40 mg PO HS #30 tab 11/03/22 02/25/23 Rx Clopidogrel [Plavix] 75 mg PO BID 02/25/23 02/25/23 History amLODIPine [Norvasc] 10 mg PO DAILY 02/25/23 02/25/23 History Allergies Allergy/AdvReac Type Severity Reaction Status Date / Time No Known Allergies Allergy Verified 02/25/23 13:30 Physical Exam Vitals: Vital Signs Temp Pulse Resp BP Pulse Ox 02/25/23 11:42 98.0 F 77 18 154/74 99 Intake and Output 02/24/23 02/25/23 02/25/23 22:59 06:59 14:59 Other: Weight 72.575 kg Results CBC & Chem 7: 02/25/23 12:26 02/25/23 12:26 Labs: Abnormal Lab Results - Last 24 Hours (Table) 02/25/23 Range/Units 12:26 ALT 88 H (4-49) U/L
[2023-02-25] MEDS ORDERED: CLOPIDOGREL 75 MG TAB PO SCH (21:00)
[2023-02-25] MEDS ORDERED: ATORVASTATIN 40 MG TAB PO SCH (21:00)
[2023-02-25 22:09] VITALS: RESP 18
[2023-02-26 06:47] VITALS: BP 135/71; PULSE 70; TEMP 97.7
[2023-02-26] MEDS ORDERED: CAFFEINE CITRATE 60 MG/3 ML VIAL IV PRN (08:07)
[2023-02-26] MEDS ORDERED: AMINOPHYLLINE 500 MG/20 ML VIAL IV PRN (08:07)
[2023-02-26] MEDS ORDERED: REGADENOSON 0.4 MG/5 ML SYRINGE IV PRN (08:07)
[2023-02-26] MEDS ORDERED: ASPIRIN 325 MG TAB PO SCH (09:00)
[2023-02-26] MEDS ORDERED: ASPIRIN 81 MG PO SCH (09:00)
[2023-02-26] MEDS ORDERED: amLODIPine 10 MG TAB PO SCH (09:00)
[2023-02-26] MEDS ORDERED: CLOPIDOGREL 75 MG TAB PO SCH (09:00)
--- NOTE | 2023-02-26 09:17 | P.CRDCN ---
History of Present Illness Consult date: 02/25/23 History of present illness: HISTORY OF PRESENT ILLNESS: This is a 72-year-old male with a past medical history significant for CVA, hypertension, hyperlipidemia, and carotid stenosis. Patient does not follow with a sheepskin pickler. We have been asked to see the patient in consultation for chest pain. Patient examined at the bedside. patient states he has been doing physical therapy at his house since his stroke in October 2022. He states yesterday when he was doing physical therapy he had some pain in the middle of his chest. He states that his physical therapist called his physician who recommended that he come to the emergency room. The patient states he has had these pains in the past several months to 1 year. He states there is nothing specific that'll bring on the pain and it seems to be random. He states the pain is not exert ionally related. He denies any palpitations. He currently denies chest pain or pressure. The patient states he is to follow up with his neurologist on Thursday for the results of his MRA and will then schedule an appointment with the vascular surgeon regarding his carotid stenosis. * EKG reveals sinus mechanism with no signs of acute ischemia * Chest xray negative for acute process * Patient underwent MRI on 02/21/2023 revealing 70% stenosis of right internal carotid artery and 50% stenosis of left proximal portion of internal carotid artery. Findings are similar to prior CAT scan on 10/31/2022 * Laboratory data: WBC 5.7. Hemoglobin 14.2. Platelet count 210. Sodium 138. Potassium 4.0. BUN 14. Creatinine 0.75. * Current home cardiac medications include Norvasc 10 mg daily, Lipitor 40 mg at night, Plavix 75 mg twice a day * Most recent echocardiogram obtained in October 2022 revealed normal LV systolic function with ejection fraction 55%, mild MR, mild TR. Negative bubble study. REVIEW OF SYSTEMS: At the time of my exam: CONSTITUTIONAL: Denies fever or chills. HEENT: Denies blurred vision, vision changes, or eye pain. Denies hemoptysis CARDIOVASCULAR: Denies chest pain. Denies orthopnea. Denies PND. Denies palpitations RESPIRATORY: Denies shortness of breath. GASTROINTESTINAL: Denies abdominal pain. Denies nausea or vomiting. HEMATOLOGIC: Denies bleeding disorders. GENITOURINARY: Denies any blood in urine. SKIN: Denies pruitis. Denies rash. PHYSICAL EXAM: VITAL SIGNS: Reviewed. GENERAL: Well-developed in no acute distress. HEENT: Head is normocephalic. Pupils are equal, round. Sclerae anicteric. Mucous membranes of the mouth are moist. Neck supple. No JVD or thyromegaly LUNGS: Respirations even and unlabored. Lungs essentially clear to auscultation bilaterally. HEART: Regular rate and rhythm. S1 and S2 heard. ABDOMEN: Soft. Nondistended. Nontender. EXTREMITIES: Normal range of motion. No clubbing or cyanosis. Peripheral pulses intact. No lower extremity edema NEUROLOGIC: Awake and alert. Oriented x 3. ASSESSMENT: Chest pain, troponin negative x 3 Hypertension Hyperlipidemia Carotid stenosis, right 70% and left 50% per MRA History of acute/subacute CVA, October 2022 PLAN: An acute coronary event has been ruled out Add aspirin 81mg daily Decrease Plavix to once daily dosing No need to repeat echo as this was performed in October 2022 Patient to undergo [place] scan stress today Further recommendations pending patient course Nurse practitioner note has been reviewed by physician. Signing provider agrees with the documented findings, assessment, and plan of care. Past Medical History Past Medical History: Asthma, CVA/TIA History of Any Multi-Drug Resistant Organisms: None Reported Past Surgical History: No Surgical Hx Reported Additional Past Surgical History / Comment(s): tumor removed from spine Past Psychological History: No Psychological Hx Reported Smoking Status: Former smoker Past Alcohol Use History: Occasional Past Drug Use History: None Reported - Past Family History Mother Family Medical History: Myocardial Infarction ([place]) Medications and Allergies Home Medications Medication Instructions Recorded Confirmed Type Atorvastatin [Lipitor] 40 mg PO HS #30 tab 11/03/22 02/25/23 Rx Clopidogrel [Plavix] 75 mg PO BID 02/25/23 02/25/23 History amLODIPine [Norvasc] 10 mg PO DAILY 02/25/23 02/25/23 History Allergies Allergy/AdvReac Type Severity Reaction Status Date / Time No Known Allergies Allergy Verified 02/25/23 13:30 Physical Exam Vitals: Vital Signs Temp Pulse Resp BP Pulse Ox 02/25/23 11:42 98.0 F 77 18 154/74 99 Intake and Output 02/24/23 02/25/23 02/25/23 22:59 06:59 14:59 Other: Weight 72.575 kg Results 02/25/23 12:26 02/25/23 12:26 Cardiac Enzymes 02/25/23 02/25/23 Range/Units 12: 12:26 AST 47 (17-59) U/L Troponin I <0.012 (0.000-0.034) ng/mL Coagulation 02/25/23 Range/Units 12: PT 10.7 (9.0-12.0) sec APTT 23.2 (22.0-30.0) sec CBC 02/25/23 Range/Units 12:26 WBC 5.7 (3.8-10.6) k/uL RBC 4.70 (4.30-5.90) m/uL Hgb 14.2 (13.0-17.5) gm/dL Hct 42.2 (39.0-53.0) % Plt Count 210 (150-450) k/uL Comprehensive Metabolic Panel 02/25/23 Range/Units 12:26 Sodium 138 (137-145) mmol/L Potassium 4.0 (3.5-5.1) mmol/L Chloride 103 (98-107) mmol/L Carbon Dioxide 25 (22-30) mmol/L BUN 14 (9-20) mg/dL Creatinine 0.75 (0.66-1.25) mg/dL Glucose 83 (74-99) mg/dL Calcium 8.9 (8.4-10.2) mg/dL AST 47 (17-59) U/L ALT 88 H (4-49) U/L Alkaline Phosphatase 61 (38-126) U/L Total Protein 7.3 (6.3-8.2) g/dL Albumin 4.3 (3.5-5.0) g/dL Current Medications Generic Name Dose Route Start Last Admin Trade Name Freq PRN Reason Stop Dose Admin Aspirin 325 mg 02/26/23 09:00 Aspirin 325 Mg Tab PO DAILY VANDANA Nitroglycerin 0.4 mg 02/25/23 13:35 Nitroglycerin Sl Tabs 0.4 Mg Tab SUBLINGUAL Q5M PRN Chest Pain Intake and Output 02/24/23 02/25/23 02/25/23 22:59 06:59 14:59 Other: Weight 72.575 kg Patient Weight 02/26/23 06:59 Weight 72.575 kg 02/25/23 12:26 02/25/23 12:26
[2023-02-26 09:57] LABS: Chol/HDL Ratio 2.94 Ratio; LDL Cholesterol,Calculated 61.4 mg/dL (0.0-131.0)
--- NOTE | 2023-02-26 11:09 | NM ---
EXAMINATION TYPE: NM stress lexiscan cardiolite DATE OF EXAM: 02/26/2023 COMPARISON: NONE HISTORY: Chest pain TECHNIQUE: After the intravenous administration of 10.3 mCi Tc 99m Sestamibi - Cardiolite resting SP ECT images acquired 45 minutes post injection. The patient received 0.4mg Lexiscan, 24.7 mCi Tc 99m Sestamibi - Stress images obtained [address] injection FINDINGS: Review of stress and rest SPECT images demonstrates a fixed perfusion defect involving the apex of th e myocardium.. Gated analysis shows normal wall motion with an estimated left ventricular ejection f raction of 41 %. IMPRESSION: No scintigraphic evidence for reversible ischemia. Tiny fixed defect involving the apex of the myocar dium suggests prior tiny myocardial infarction. Correlate clinically.
--- NOTE | 2023-02-26 13:23 | CA ---
Lexiscan Nuclear Stress Test Report Name: Camacho Bowens Exam Date: 02/26/2023 09:39 Exam Location: [place] Stress Ht (in): 70 Wt (lb): 165 BSA: 1.92 Ordering Phys: Romy Alvarado Referring Phys: VADIM, Technologist: Gary Lemon Age: 72 Gender: M : 1950 Procedure CPT: Indications: Reflex order-Stress test ICD-10 Codes: Patient History: Medications: SEE CHART Meds past 24 hrs: Pretest Chest Pain: STRESS TEST Lexiscan Protocol Exercise Duration (min:sec): 01:[address] Depressions (mm): Angina Score: Katz Score: Resting HR (bpm): 71 Peak HR (bpm): 98 Resting BP (mmHg): 166 / 87 Peak BP (mmHg): 157 / 88 MPHR: 150 Target HR: 128 % MPHR: 65 METS: 1.0 Total Dose: Peak Dose: Atropine: Double Product: 22186 BP Response: Stress Termination: INFUSION COMPLETE Stress Symptoms: NO SYMPTOMS Stress Summary: ECG ANALYSIS Resting ECG: Stress ECG: CONCLUSIONS At baseline EKG showed normal sinus rhythm, normal axis, no significant ST or T wave abnormalities. Patient recieved IV infusion of Lexiscan 0.4mg and at peak infusion EKG showed no significant change from baseline. Conclusions: 1. Normal EKG response to Lexiscan infusion 2. Nuclear imaging to be reported separately. Dr. Josue Lizarraga DO (Electronically Signed) Final Date: 26 February 2023 13:23
--- NOTE | 2023-02-26 22:30 | P.DS ---
Providers Date of admission: 02/25/23 13:37 Attending physician: Rafita Jimenez Consults: 02/25/23 13:35 Consult Physician Urgent Consulting Provider: Josue Lizarraga Consult Reason/Comments: chest pain Do you want consulting provider notified?: Yes Primary care physician: Camacho Downing Hospital Course: Diagnoses: Chest pain, completely resolved upon discharge and treated by tool and die repair for discharge History of prior stroke. Hypertension Hyperlipidemia Hospital course: History of present illness; patient is a 72-year-old gentleman past medical history significant for stroke, hypertension who presented to The ER because of chest pain. He has been evaluated by tool and die repair and he had negative stress test about tool and die repair cleared him for discharge. Patient noticed to take Plavix 75 mg twice daily number discussed the case with tool and die repair recommended to switch it to once daily and add aspirin 81 mg daily, patient informed and he agrees. Also patient with history of stroke and right hemiparesis which he states his stable, he confirmed to me on several occasions it is not worsening as well as he confirmed to me he denies any other new complaints, no other neurological complaints, no change in urine or bowel habits, no dyspnea no coughing and he agrees to go home today. Of note he follow-up with neurologist Dr. Muñoz and he had recently done MRA of the brain with plan to follow up with him as an outpatient which he intends to keep this appointment. Patient was fit for discharge by tool and die repair Problems and management plan were discussed with the patient and he verbalized u nderstanding and acceptance Patient was found stable and can be discharged home in guarded prognosis however he needs follow-up as an outpatient. Patient was instructed to follow up with PCP Dr. Downing within one week and patient agrees Patient was instructed to follow up with tool and die repair Dr. Dahl in 1-[address] Muñoz in 1-2 weeks and he agrees to call and make appointments Physical exam Gen: patient is a AAOx3, no distress CVS: S1-S2, RRR, no murmur Lungs: B/L CTA, no wheezing Abdomen: soft, no distention, no tenderness, positive bowel sounds Extremity: no leg edema or induration Neuro: Cranial nerves are grossly intact. Mild chronic right hemiparesis. No sensory loss. Meningeal signs are absent Time spent more than 35 minutes Patient Condition at Discharge: Fair Plan - Discharge Summary Discharge Rx Participant: No New Discharge Prescriptions: New Aspirin 81 mg PO DAILY #30 tab Continue Atorvastatin [Lipitor] 40 mg PO HS #30 tab amLODIPine [Norvasc] 10 mg PO DAILY Changed Clopidogrel [Plavix] 75 mg PO DAILY #0 Discharge Medication List Atorvastatin [Lipitor] 40 mg PO HS #30 tab 11/03/22 [Rx] amLODIPine [Norvasc] 10 mg PO DAILY 02/25/23 [History] Aspirin 81 mg PO DAILY #30 tab 02/26/23 [Rx] Clopidogrel [Plavix] 75 mg PO DAILY #0 02/26/23 [Rx] Follow up Appointment(s)/Referral(s): Lucas Woodard MD [STAFF PHYSICIAN] - 2 Weeks (office will call the patient to make follow up appointment.) Be Muñoz DO [STAFF PHYSICIAN] - 1 Week Camacho Downing MD [Primary Care Provider] - 1-2 days Patient Instructions/Handouts: Chest Pain (DC) Activity/Diet/Wound Care/Special Instructions: Heart healthy diet activity is restricted till you see your doctor please lower the dose of plavix to once daily instead of twice a day , and add baby aspirin 81 mg daily to it. Discharge Disposition: HOME SELF-CARE
--- NOTE | 2023-02-27 09:26 | CA ---
Transthoracic Echo Report Name: Camacho Bowens Age: 72 Gender: M : 1950 Exam Date: 02/26/2023 12:33 Exam Location: [place] Echo Ht (in): 70 Wt (lb): 160 Ordering Physician: Romy Alvarado Attending/Referring Phys: Jenny Stanton;[id number] Lead Software Tester Leslie Holder RDCS Procedure CPT: Indications: LV function, call Romy AUTOMOTIVE BRAKE ADJUSTER at [phone] with EF Cardiac Hx: limited study Technical Quality: Good Contrast 1: Total Dose (mL): Contrast 2: Total Dose (mL): MEASUREMENTS (Male / Female) Normal Values 2D ECHO LV Diastolic Diameter PLAX 5.2 cm 4.2 - 5.9 / 3.9 - 5.3 cm LV Systolic Diameter PLAX 3.7 cm IVS Diastolic Thickness 1.2 cm 0.6 - 1.0 / 0.6 - 0.9 cm LVPW Diastolic Thickness 1.0 cm 0.6 - 1.0 / 0.6 - 0.9 cm LV Relative Wall Thickness 0.4 RV Internal Dim ED PLAX 2.8 cm LA Systolic Diameter LX 3.4 cm 3.0 - 4.0 / 2.7 - 3.8 cm LV Diastolic Volume MOD BP 62.4 cm??? 67 - 155 / 56 - 104 cm??? LV Systolic Volume MOD BP 32.6 cm??? 22 - 58 / 19 - 49 cm??? LV Ejection Fraction MOD BP 47.7 % >= 55 % LV Diastolic Volume MOD 4C 62.8 cm??? LV Systolic Volume MOD 4C 31.9 cm??? LV Ejection Fraction MOD 4C 49.3 % LV Diastolic Length 4C 7.2 cm LV Systolic Length 4C 6.3 cm LV Diastolic Volume MOD 2C 60.3 cm??? LV Systolic Volume MOD 2C 29.9 cm??? LV Ejection Fraction MOD 2C 50.5 % LV Diastolic Length 2C 7.6 cm LV Systolic Length 2C 7.1 cm FINDINGS Left Ventricle Left ventricular ejection fraction is estimated at 45-50 %. Left ventricular cavity size normal. Mild concentric left ventricular hypertrophy. Mildly decreased left ventricular ejection fraction. Right Ventricle Normal right ventricular size and function. Right Atrium Normal right atrial size. Left Atrium Normal left atrial size. Mitral Valve Trace to mild mitral regurgitation. Aortic Valve Trileaflet aortic valve. Mild aortic regurgitation. Tricuspid Valve Structurally normal tricuspid valve. Mild tricuspid regurgitation. Pulmonic Valve Structurally normal pulmonic valve. Trace pulmonic regurgitation. Pericardium Normal pericardium. No pericardial effusion. Aorta Normal size aortic root and proximal ascending aorta. CONCLUSIONS Left ventricular ejection fraction 45-50% Mild increased left ventricular wall thickness Trace to mild mitral regurgitation Mild aortic regurgitation Mild tricuspid regurgitation No pericardial effusion Previewed by: Dr. Josue Lizarraga DO (Electronically Signed) Final Date: 27 February 2023 09:26
== END 2023-02-26 18:15 | disposition home or self-care (01) ==
LOC: EC 11:40 → 6NMEDSUR 13:37
PROVIDERS: ADMIT Hospitalist; ATTEND Hospitalist
DX: R07.89 Other chest pain (principal); I10 Essential (primary) hypertension; E78.5 Hyperlipidemia, unspecified; I65.23 Occlusion and stenosis of bilateral carotid arteries; Z86.73 Personal history of transient ischemic attack (TIA), and cerebral infarction without residual deficits; Z87.891 Personal history of nicotine dependence; Z79.02 Long term (current) use of antithrombotics/antiplatelets; Z79.899 Other long term (current) drug therapy; Z82.49 Family history of ischemic heart disease and other diseases of the circulatory system
CPT/HCPCS: 99285; 36415; 93005; 93308; 93017; 80061; 80053; 83735; 84484; 85025; 85610; 85730; 71046; 78452; G0378 ×2; A9500; J2785

== ENCOUNTER 2023-09-09 18:40 | Emergency (ER) | payer MEDICARE ==
[2023-09-09] MEDS ORDERED: SODIUM CHLORIDE 0.9% 500 ML 500 ML IV STA (18:51)
[2023-09-09 19:43] LABS: Basophils % (A) 0 %; Eosinophils # (A) 0.2 k/uL (0-0.7); Eosinophils % (A) 2 %; HCT 38.4 % (39.0-53.0); HGB 12.9 gm/dL (13.0-17.5); Lymphocytes # (A) 0.7 k/uL (1.0-4.8); Lymphocytes % (A) 7 %; MCH 30.4 pg (25.0-35.0); MCHC 33.5 g/dL (31.0-37.0); MCV 90.7 fL (80.0-100.0); Monocytes # (A) 0.7 k/uL (0-1.0); Monocytes % (A) 6 %; Neutrophils # (A) 9.4 k/uL (1.3-7.7); Neutrophils % (A) 85 %; Platelet Count 235 k/uL (150-450); RBC 4.24 m/uL (4.30-5.90); RDW 13.1 % (11.5-15.5); WBC 11.1 k/uL (3.8-10.6)
--- NOTE | 2023-09-09 19:48 | ED ---
General Adult HPI - General Chief complaint: Syncope Stated complaint: Syncope Time Seen by Provider: 09/09/23 18:44 Source: patient, RN notes reviewed, old records reviewed Mode of arrival: EMS Limitations: no limitations - History of Present Illness Initial comments: 72-year-old male presents with syncopal episode. Patient was in a motorized wheelchair when he momentarily loss consciousness. He denies any preceding symptoms of palpitation no chest pain. He states that he did have several alcoholic beverages earlier today. He's had previous CVA and is hemiplegic on the right. This was approximately one year ago. He denies headache. Denies chest pain. Denies vomiting. He states he is hungry. Episode lasted several minutes. Initial blood pressure by paramedics was in the 80s. - Related Data Home Medications Medication Instructions Recorded Confirmed amLODIPine [Norvasc] 10 mg PO DAILY 02/25/23 02/25/23 Previous Rx's Medication Instructions Recorded Atorvastatin [Lipitor] 40 mg PO HS #30 tab 11/03/22 Aspirin 81 mg PO DAILY #30 tab 02/26/23 Clopidogrel [Plavix] 75 mg PO DAILY #0 02/26/23 Allergies Allergy/AdvReac Type Severity Reaction Status Date / Time No Known Allergies Allergy Verified 09/09/23 19:44 Review of Systems ROS Statement: Those systems with pertinent positive or pertinent negative responses have been documented in the HPI. ROS Other: All systems not noted in ROS Statement are negative. Past Medical History Past Medical History: Asthma, CVA/TIA History of Any Multi-Drug Resistant Organisms: None Reported Past Surgical History: No Surgical Hx Reported Additional Past Surgical History / Comment(s): tumor removed from spine Past Anesthesia/Blood Transfusion Reactions: No Reported Reaction Additional Past Anesthesia/Blood Transfusion Reaction / Comment(s): never had a blood transfusion Past Psychological History: No Psychological Hx Reported Smoking Status: Former smoker Past Alcohol Use History: Occasional Past Drug Use History: None Reported - Past Family History Mother Family Medical History: Myocardial Infarction (MT) General Exam Limitations: no limitations General appearance: alert, in no apparent distress Head exam: Present: atraumatic, normocephalic Eye exam: Present: normal appearance, PERRL ENT exam: Present: mucous membranes dry Neck exam: Present: normal inspection. Absent: tenderness, meningismus Respiratory exam: Present: normal lung sounds bilaterally. Absent: respiratory distress Cardiovascular Exam: Present: regular rate, normal rhythm GI/Abdominal exam: Present: soft. Absent: distended Extremities exam: Present: normal inspection Neurological exam: Present: alert, motor sensory deficit (Right-sided hemiplegia) Psychiatric exam: Present: normal affect, normal mood Skin exam: Present: warm, dry, intact Medical Decision Making - Medical Decision Making Was pt. sent in by a medical professional or institution (, PA, DISH STACKER, urgent care, hospital, or usp...) When possible be specific @ -No Did you speak to anyone other than the patient for history (EMS, parent, family, police, friend...)? What history was obtained from this source @ -No Did you review nursing and triage notes (agree or disagree)? Why? @ -I reviewed and agree with nursing and triage notes Were old charts reviewed (outside hosp., previous admission, EMS record, old EKG, old radiological studies, urgent care reports/EKG's, usp records)? Report findings @ -No old charts were reviewed Differential Diagnosis (chest pain, altered mental status, abdominal pain women, abdominal pain men, vaginal bleeding, weakness, fever, dyspnea, syncope, headache, dizziness, GI bleed, back pain, seizure, CVA, palpatations, mental health, musculoskeletal)? @ -Differential Syncope: Valvular disease, hypertrophic cardiomyopathy, pulmonary embolism, tamponade, tachycardia, bradycardia, MT, hypovolemia, hemorrhage, dissection, anemia, intracranial hemorrhage, seizure, hypoglycemia, carbon monoxide poisoning, this is not meant to be an all-inclusive list. EKG interpreted by me (3pts min.). @ -Sinus rhythm rate of 71, IN interval less than 200, QRS duration 1:15, QTC [address] segment changes. X-rays interpreted by me (1pt min.). @ -[Chest x-ray negative for acute cardio pulmonary findings, hyperinflation consistent with COPD CT interpreted by me (1pt min.). @ -None done U/S interpreted by me (1pt. min.). @ -None done What testing was considered but not performed or refused? (CT, X-rays, U/S, labs)? Why? @ -None What meds were considered but not given or refused? Why? @ -None Did you discuss the management of the patient with other professionals (professionals i.e. , PA, DISH STACKER, lab, RT, psych nurse, social media strategist, planning division superintendent, teacher, border patrol officer, case assembler)? Give summary @ -No Was smoking cessation discussed for >3mins.? @ -No Was critical care preformed (if so, how long)? @ -No Were there social determinants of health that impacted care today? How? (Homelessness, low income, unemployed, alcoholism, drug addiction, trans portation, low edu. Level, literacy, decrease access to med. care, senior living, rehab)? @ -No Was there de-escalation of care discussed even if they declined (Discuss DNR or withdrawal of care, Hospice)? DNR status @ -No What co-morbidities impacted this encounter? (DM, HTN, Smoking, COPD, CAD, Cancer, CVA, ARF, Chemo, Hep., AIDS, mental health diagnosis, sleep apnea, morbid obesity)? @ -CVA Was patient admitted / discharged? Hospital course, mention meds given and route, prescriptions, significant lab abnormalities, going to OR and other pertinent info. @ 72-year-old male with brief syncopal episode. Patient moderate in the emergency department. Laboratory studies obtained which are unremarkable. Chest x-ray is clear. EKG is sinus rhythm. Patient is able to eat and drink in the emergency department. No further complaints. Vital signs stable. Patient offered observation. States he's feeling better and wishes to be discharged. Stable for discharge at this time. Undiagnosed new problem with uncertain prognosis? @ -No Drug Therapy requiring intensive monitoring for toxicity (Heparin, Nitro, Ins ulin, Cardizem)? @ -No Were any procedures done? @ -No Diagnosis/symptom? @ - syncope likely orthostatic r Chronic, or Acute on Chronic? @ -Acute Uncomplicated (without systemic symptoms) or Complicated (systemic symptoms)? @ -default Side effects of treatment? @ -No Exacerbation, Progression, or Severe Exacerbation? @ -No Poses a threat to life or bodily function? How? (Chest pain, USA, MT, pneumonia, PE, COPD, DKA, ARF, appy, cholecystitis, CVA, Diverticulitis, Homicidal, Suicidal, threat to staff... and all critical care pts) @ -Low risk at this time - Lab Data Result diagrams: 09/09/23 19:24 09/09/23 19:24 Lab Results 09/09/23 09/09/23 09/09/23 Range/Units 19:24 19:24 19:24 WBC 11.1 H (3.8-10.6) k/uL RBC 4.24 L (4.30-5.90) m/uL Hgb 12.9 L (13.0-17.5) gm/dL Hct 38.4 L (39.0-53.0) % MCV 90.7 (80.0-100.0) fL MCH 30.4 (25.0-35.0) pg MCHC 33.5 (31.0-37.0) g/dL RDW 13.1 (11.5-15.5) % Plt Count 235 (150-450) k/uL MPV 7.0 Neutrophils % 85 % Lymphocytes % 7 % Monocytes % 6 % Eosinophils % 2 % Basophils % 0 % Neutrophils # 9.4 H (1.3-7.7) k/uL Lymphocytes # 0.7 L (1.0-4.8) k/uL Monocytes # 0.7 (0-1.0) k/uL Eosinophils # 0.2 (0-0.7) k/uL Basophils # 0.0 (0-0.2) k/uL PT 10.5 (9.0-12.0) sec INR 1.0 (<1.2) APTT 19.3 L (22.0-30.0) sec Sodium 138 (137-145) mmol/L Potassium 4.1 (3.5-5.1) mmol/L Chloride 107 (98-107) mmol/L Carbon Dioxide 20 L (22-30) mmol/L Anion Gap 11 mmol/L BUN 23 H (9-20) mg/dL Creatinine 1.03 (0.66-1.25) mg/dL Est GFR (CKD-EPI)AfAm 85 (>60 ml/min/1.73 sqM) Est GFR (CKD-EPI)NonAf 74 (>60 ml/min/1.73 sqM) Glucose 84 (74-99) mg/dL Calcium 8.5 (8.4-10.2) mg/dL Magnesium 2.1 (1.6-2.3) mg/dL Total Bilirubin 0.3 (0.2-1.3) mg/dL AST 24 (17-59) U/L ALT 28 (4-49) U/L Alkaline Phosphatase 56 (38-126) U/L Troponin I (0.000-0.034) ng/mL Total Protein 6.4 (6.3-8.2) g/dL Albumin 3.8 (3.5-5.0) g/dL Serum Alcohol <10 mg/dL 09/09/23 Range/Units 19:24 WBC (3.8-10.6) k/uL RBC (4.30-5.90) m/uL Hgb (13.0-17.5) gm/dL Hct (39.0-53.0) % MCV (80.0-100.0) fL MCH (25.0-35.0) pg MCHC (31.0-37.0) g/dL RDW (11.5-15.5) % Plt Count (150-450) k/uL MPV Neutrophils % % Lymphocytes % % Monocytes % % Eosinophils % % Basophils % % Neutrophils # (1.3-7.7) k/uL Lymphocytes # (1.0-4.8) k/uL Monocytes # (0-1.0) k/uL Eosinophils # (0-0.7) k/uL Basophils # (0-0.2) k/uL PT (9.0-12.0) sec INR (<1.2) APTT (22.0-30.0) sec Sodium (137-145) mmol/L Potassium (3.5-5.1) mmol/L Chloride (98-107) mmol/L Carbon Dioxide (22-30) mmol/L Anion Gap mmol/L BUN (9-20) mg/dL Creatinine (0.66-1.25) mg/dL Est GFR (CKD-EPI)AfAm (>60 ml/min/1.73 sqM) Est GFR (CKD-EPI)NonAf (>60 ml/min/1.73 sqM) Glucose (74-99) mg/dL Calcium (8.4-10.2) mg/dL Magnesium (1.6-2.3) mg/dL Total Bilirubin (0.2-1.3) mg/dL AST (17-59) U/L ALT (4-49) U/L Alkaline Phosphatase (38-126) U/L Troponin I <0.012 (0.000-0.034) ng/mL Total Protein (6.3-8.2) g/dL Albumin (3.5-5.0) g/dL Serum Alcohol mg/dL Disposition Clinical Impression: Syncope due to orthostatic hypotension Disposition: HOME SELF-CARE Condition: Fair Instructions (If sedation given, give patient instructions): Syncope (DC) Is patient prescribed a controlled substance at d/c from ED?: No Referrals: Camacho Downing MD [Primary Care Provider] - 1-2 days Time of Disposition: 22:25
[2023-09-09 19:51] LABS: Prothrombin Time 10.5 sec (9.0-12.0)
[2023-09-09 20:00] LABS: ALT 28 U/L (4-49); AST 24 U/L (17-59); African American GFR (CKD) 85 (>60 ml/min/1.73 sqM); Albumin 3.8 g/dL (3.5-5.0); Alcohol <10 mg/dL; Alkaline Phosphatase 56 U/L (38-126); Anion Gap 11 mmol/L; Blood Urea Nitrogen 23 mg/dL (9-20); Calcium 8.5 mg/dL (8.4-10.2); Carbon Dioxide 20 mmol/L (22-30); Chloride 107 mmol/L (98-107); Glucose 84 mg/dL (74-99); Magnesium 2.1 mg/dL (1.6-2.3); Non-African American GFR(CKD) 74 (>60 ml/min/1.73 sqM); Potassium 4.1 mmol/L (3.5-5.1); Sodium 138 mmol/L (137-145); Total Bilirubin 0.3 mg/dL (0.2-1.3); Total Protein 6.4 g/dL (6.3-8.2)
[2023-09-09 20:13] LABS: Partial Thromboplastin Time 19.3 sec (22.0-30.0)
--- NOTE | 2023-09-09 20:32 | XR ---
EXAMINATION TYPE: XR chest 2V DATE OF EXAM: 09/09/2023 7:54 PM CLINICAL INDICATION:Male, 72 years old with history of syncope; H COMPARISON: Chest radiographs from 02/25/2023 TECHNIQUE: XR chest 2V Frontal and lateral views of the chest. FINDINGS: Lungs/Pleura: There is flattening of the diaphragm with increased lucency of the lungs. No evidence o f pneumothorax, pleural effusion or focal consolidation. Pulmonary vascularity: Unremarkable. Heart/mediastinum: Cardiomediastinal silhouette is unremarkable. Musculoskeletal: No acute osseous pathology. IMPRESSION: 1. No acute cardiopulmonary disease process. 2. COPD changes.
[2023-09-09 23:40] VITALS: BP 101/68; PULSE 65; RESP 17; TEMP 98.2
== END 2023-09-09 23:33 | disposition home or self-care (01) ==
LOC: EC 18:40
DX: I95.1 Orthostatic hypotension (principal); J44.89 Other specified chronic obstructive pulmonary disease; J45.909 Unspecified asthma, uncomplicated; Z87.891 Personal history of nicotine dependence
CPT/HCPCS: 36415; 71046; 80053; 80320; 83735; 84484; 85025; 85610; 85730; 93005; 96360; 96361; 99285

== ENCOUNTER → 2025-06-30 | Outpatient (CLI) | payer MEDICARE | END | disposition home or self-care (01) | LOC: LABWHC1 15:48 | PROVIDERS: ATTEND Nurse Practitioner Acute Care | DX: I65.23 Occlusion and stenosis of bilateral carotid arteries (principal) | CPT/HCPCS: 36415; 82565 ==